=== PATIENT | female | born 1995 | race Caucasian/White ===

== ENCOUNTER → 2019-07-05 09:46 | Outpatient (BNVA) | payer MEDICAID, SELFPAY | PROVIDERS: Family Provider Nurse Practitioner Family; PCP Nurse Practitioner Family; Visit Provider Nurse Practitioner | DX: F31.0 Bipolar disorder, current episode hypomanic (principal); F60.3 Borderline personality disorder | CPT/HCPCS: 99213 ==

== ENCOUNTER → 2019-09-11 10:17 | Outpatient (BNVA) | payer MEDICAID, SELFPAY | PROVIDERS: Family Provider Nurse Practitioner Family; PCP Nurse Practitioner Family; Visit Provider Nurse Practitioner | DX: E11.9 Type 2 diabetes mellitus without complications (principal); F31.0 Bipolar disorder, current episode hypomanic | CPT/HCPCS: 80053; 81000; 81003; 85025 ==

== ENCOUNTER → 2019-09-18 08:38 | Outpatient (BNVA) | payer MEDICAID, SELFPAY | PROVIDERS: Family Provider Nurse Practitioner Family; PCP Nurse Practitioner Family; Visit Provider Nurse Practitioner | DX: F60.3 Borderline personality disorder (principal); F31.0 Bipolar disorder, current episode hypomanic; F41.1 Generalized anxiety disorder | CPT/HCPCS: 99213 ==

== ENCOUNTER 2019-10-01 17:41 | Emergency (ER) | payer MEDICAID, SELFPAY ==
[2019-10-01 17:43] VITALS: BP 142/98; PULSE 79; RESP 17; TEMP 36.5; O2SAT 99; BMI 30.7
[2019-10-01 17:52] VITALS: RESP 16
--- NOTE | 2019-10-01 18:06 | ED_ITS ---
Documented by User: Salma Vang MD 10/07/19 19:08 HPI - Psych General: Chief Complaint: Psychiatric Symptoms Stated Complaint: violent outburst Time Seen by Provider: 10/01/19 17:45 History of Present Illness: HPI Narrative: Patient is a 23-year-old female presenting after making verbal threats to her guardian and housemates. She is a little fuzzy on the details of these exchanges. She denies any physical injury to herself or others. She says that she was thinking about hurting herself earlier but denies it now. She states that she does not want to be put in a straight jacket. She says that she did not mean any of the things that she said earlier and did not intend to harm anyone. She tells me that she has a guardian named Maira and that Maira told her she could not live in her care home anymore. She told her that she needs to be admitted. The patient is concerned that the TELEVISION ENGINEERING TEACHER you will not admit her here because she has been here so many times. complaint: suicidal ideation Onset (ago): unknown Duration: intermittent History of same: Yes Associated symptoms: Reports homicidal ideation and suicidal ideation Review of Systems General: Reports: 10 or more systems reviewed and unremarkable except in HPI and below Const: Denies: fever(s) or chills Card: Denies: chest pain Resp: Denies: dyspnea or productive cough Psych: Reports: anxiety, mood swings, irritability, suicidal ideation and homicidal ideation PFS ED PFSH: Medical History Acute pancreatitis with infected necrosis ADHD Autistic disorder Bipolar disorder, current episode hypomanic Borderline personality disorder Constipation, slow transit Depo-Provera contraceptive status Intellectual delay OCD (obsessive compulsive disorder) Oppositional defiant disorder Schizophrenia, unspecified Uses feeding tube Surgical History History of gastrostomy tube placement Family History Denies family history of Bleeding disorder Social History Smoking and tobacco status: never smoked Second hand smoke exposure: No Smoking risk assessment/counseling performed?: No Alcohol intake: never Desire information about alcohol rehabilitation?: No Counseling given: No Desire information about substance/drug rehabilitation?: No Counseling given: No Adopted: No Caregiver/support person: Yes Lives independently: No Household members: caregiver and other Housing: Apartment Marital status: Single Number of children: 0 Number of grandchildren: 0 Highest education level completed: High School Graduate service: No Current occupational status: employed Current occupational exposures/hazards: No Pets and animals: Yes History of recent travel: No Sexually active: No Current gender identity: Female Special blaine needs: No Physical Exam Const: COMMON NORMALS: no acute distress, patient oriented x3 and alert GENERAL APPEARANCE: cooperative and well developed; not in distress and not diaphoretic ORIENTATION/CONSCIOUSNESS: Yes awake, Yes oriented to person, Yes oriented to place and Yes oriented to time HENMT: COMMON NORMALS: normocephalic, atraumatic, external ears normal, Normal external nose present and moist oral mucous membranes HEAD & SCALP: normocephalic and atraumatic FACE & SINUS: normal facial exam; no Facial tenderness on exam of face and sinuses NOSE: Normal external nose present EXTERNAL EAR: Yes external ears normal Eye: COMMON NORMALS: Equal, round and reactive pupils present and EOMs intact bilaterally PUPIL: Yes Equal, round and reactive pupils present Neck/C-Spine: COMMON NORMALS: full ROM, supple and no JVD GENERAL: Yes normal visual inspection and Yes trachea midline CERVICAL SPINE: No Cervical spine tenderness Lymph: LYMPHATIC: no lymphadenopathy noted Chest: COMMONS NORMALS: normal inspection of the chest Resp: COMMON NORMALS: normal respiratory effort, No use of accessory muscles and clear to auscultation bilaterally EFFORT & INSPECTION: Yes able to speak in complete sentences and Yes symmetric chest movement AUSCULTATION: clear to auscultation bilaterally Cardio: COMMON NORMALS: no JVD, regular rate, regular rhythm, No gallops present (Cardio), No murmurs present (Cardio) and Peripheral pulses 2+ throughout RATE: regular rate RHYTHM: regular rhythm PERIPHERAL PULSES: Peripheral pulses 2+ throughout GI: COMMON NORMALS: Normal to inspection, nondistended, normoactive bowel sounds present, Soft to palpation and non-tender PALPATION: Yes Soft to palpation Back/Pelvis: COMMON NORMALS: thoracic and lumbar spine normal to inspection and thoraco-lumbar ROM normal Extremity: COMMON NORMALS: normal to inspection, full ROM and capillary refill normal Neuro: COMMON NORMALS: patient oriented x3, CN's II-XII intact bilaterally, moves all extremities, no focal motor deficits and no sensory deficits noted SENSORIUM/ORIENTATION: Yes alert, Yes oriented to person, Yes oriented to place and Yes oriented to time Psych: COMMON NORMALS: mental status grossly normal, Normal thought process present, cooperative, normal affect, speech normal and activity/motor behavior normal SPEECH: Yes normal speech THOUGHT PROCESS: Normal thought process present Skin: COMMON NORMALS: no rashes or lesions noted and turgor normal GENERAL SKIN EXAM: no rashes or lesions noted and turgor normal MDM - Psych Lab Data: Labs: Lab Results 10/01/19 10/01/19 10/01/19 Range/Units 15:47 15:47 15:47 WBC (4.0-10.0) 10^3/ uL RBC (4.1-5.3) 10^6/u L Hgb (11.5-15.3) g/dL Hct (37.0-47.0) % MCV (81-99) fL MCH (28.0-34.0) pg MCHC (30.0-36.0) g/dL RDW (12.1-15.1) % Plt Count (130-400) 10^3/c mm MPV (7.4-10.4) fL Neut % (Auto) % Lymph % (Auto) % [place] % (Auto) % Eos % (Auto) % Baso % (Auto) % Neut # (Auto) (1.8-7.7) 10^3/u L Lymph # (Auto) (0.8-4.8) 10^3/u L [place] # (Auto) (0.2-0.9) 10^3/u L Eos # (Auto) (0.0-0.8) 10^3/u L Baso # (Auto) (0.0-0.1) 10^3/u L Nucleated RBC % (a uto) % Nucleated RBCs # /100WBC Sodium (136-145) mmol/L Potassium (3.5-5.1) mmol/L Chloride (98-107) mmol/L Carbon Dioxide (22-29) mmol/L Anion Gap (5-19) BUN (6-20) mg/dL Creatinine (0.5-0.9) mg/dL GFR Calculation (90-130) mL/min Glucose (65-115) mg/dL Calculated Osmolal ity (285-295) mOsm/k g Calcium (8.5-10.5) mg/dL Total Bilirubin (0.15-1.2) mg/dL AST (0-32) U/L ALT (0-33) U/L Alkaline Phosphata se (35-105) IU/L Total Protein (6.6-8.7) g/dL Albumin (3.5-5.2) g/dL Globulin (1.3-4.6) g/dL TSH (0.27-4.20) uIU/ mL HCG, Qual Negative (Negative) Urine Color Straw (Yellow) Urine Appearance Clear (CLEAR) Urine pH 6.5 (5-7) Ur Specific Gravit y 1.015 (1.005-1.030) Urine Protein 1+ H (Negative) Urine Glucose (UA) Norm (Normal) Urine Ketones Negative (Negative) Urine Blood Neg (Negative) Urine Nitrate Negative (Negative) Urine Bilirubin Neg (NEGATIVE) Urine Urobilinogen Norm (Negative) mg/dL Ur Leukocyte Dionna ase Negative (Negative) Urine RBC None (0-2) /hpf Urine WBC 0-4 H (0-5) /hpf Ur Squamous Epith Cells 0-4 H (0-5) Urine Bacteria Trace (NONE) Salicylates (3-10) mg/dL Urine Opiates Scre en Negative (Negative) ng/mL Acetaminophen (10-30) ug/mL Ur Barbiturates Sc reen Negative (Negative) ng/mL Ur Phencyclidine S crn Negative (Negative) ng/mL Ur Amphetamines Sc reen Negative (Negative) ng/mL U Benzodiazepines Scrn Negative (Negative) ng/mL Urine Cocaine Scre en Negative (Negative) ng/mL U Marijuana (THC) Screen Negative (Negative) ng/mL Ethyl Alcohol (0-10) mg/dL 10/01/19 10/01/19 Range/Units 18:03 18:03 WBC 9.8 (4.0-10.0) 10^3/ uL RBC 5.48 H (4.1-5.3) 10^6/u L Hgb 14.5 (11.5-15.3) g/dL Hct 46.2 (37.0-47.0) % MCV 84.3 (81-99) fL MCH 26.5 L (28.0-34.0) pg MCHC 31.4 (30.0-36.0) g/dL RDW 13.9 (12.1-15.1) % Plt Count 267 (130-400) 10^3/c mm MPV 10.5 H (7.4-10.4) fL Neut % (Auto) 61.6 % Lymph % (Auto) 30.5 % [place] % (Auto) 5.5 % Eos % (Auto) 2.0 % Baso % (Auto) 0.1 % Neut # (Auto) 6.1 (1.8-7.7) 10^3/u L Lymph # (Auto) 3.0 (0.8-4.8) 10^3/u L [place] # (Auto) 0.5 (0.2-0.9) 10^3/u L Eos # (Auto) 0.2 (0.0-0.8) 10^3/u L Baso # (Auto) 0.0 (0.0-0.1) 10^3/u L Nucleated RBC % (a uto) 0 % Nucleated RBCs # 0.0 /100WBC Sodium 141 (136-145) mmol/L Potassium 3.8 (3.5-5.1) mmol/L Chloride 103 (98-107) mmol/L Carbon Dioxide 24 (22-29) mmol/L Anion Gap 17.8 (5-19) BUN 13 (6-20) mg/dL Creatinine 0.7 (0.5-0.9) mg/dL GFR Calculation 102.8 (90-130) mL/min Glucose 127 H (65-115) mg/dL Calculated Osmolal ity 290 (285-295) mOsm/k g Calcium 9.6 (8.5-10.5) mg/dL Total Bilirubin 0.2 (0.15-1.2) mg/dL AST 16 (0-32) U/L ALT 13 (0-33) U/L Alkaline Phosphata se 86 (35-105) IU/L Total Protein 7.6 (6.6-8.7) g/dL Albumin 4.8 (3.5-5.2) g/dL Globulin 2.8 (1.3-4.6) g/dL TSH 1.21 (0.27-4.20) uIU/ mL HCG, Qual (Negative) Urine Color (Yellow) Urine Appearance (CLEAR) Urine pH (5-7) Ur Specific Gravit y (1.005-1.030) Urine Protein (Negative) Urine Glucose (UA) (Normal) Urine Ketones (Negative) Urine Blood (Negative) Urine Nitrate (Negative) Urine Bilirubin (NEGATIVE) Urine Urobilinogen (Negative) mg/dL Ur Leukocyte Dionna ase (Negative) Urine RBC (0-2) /hpf Urine WBC (0-5) /hpf Ur Squamous Epith Cells (0-5) Urine Bacteria (NONE) Salicylates < 0.3 L (3-10) mg/dL Urine Opiates Scre en (Negative) ng/mL Acetaminophen < 5.0 L (10-30) ug/mL Ur Barbiturates Sc reen (Negative) ng/mL Ur Phencyclidine S crn (Negative) ng/mL Ur Amphetamines Sc reen (Negative) ng/mL U Benzodiazepines Scrn (Negative) ng/mL Urine Cocaine Scre en (Negative) ng/mL U Marijuana (THC) Screen (Negative) ng/mL Ethyl Alcohol < 10 (0-10) mg/dL Discharge Plan Discharge Patient Disposition: Home, Self-Care Clinical Impression: Behavioral disorder, Intellectual delay, Bipolar disorder, current episode hypomanic, Borderline personality disorder Condition: Stable Prescriptions: No Action calcium carbonate-vitamin D3 [Caltrate with Vitamin D3] 600 mg(1,500mg) -800 unit tablet 1 tab PO DAILY RF: 0 docusate sodium [Colace] 100 mg capsule 100 mg PO BID RF: 0 medroxyprogesterone [Depo-Provera] 150 mg/mL suspension IM RF: 0 fluticasone propionate 50 mcg/actuation spray,suspension 1 spray INTRANASAL BID RF: 0 ibuprofen 600 mg tablet 600 mg PO BID PRNRF: 0 acetaminophen [Mapap (acetaminophen)] 325 mg tablet 325 mg PO QID PRNRF: 0 cetirizine [Zyrtec] 10 mg tablet 10 mg PO DAILY RF: 0 (DME) blood-glucose meter Kit See Rx Instructions .ROUTE .MEDSUPPLY Qty: 1 RF: 0 multivitamin with iron PO DAILY RF: 0 Osmolite 1.5 Sudeep 0.06 gram-1.5 kcal/mL liquid PO RF: 0 ziprasidone HCl 60 mg capsule 60 mg PO BID Qty: 60 RF: 0 lamotrigine 100 mg tablet 100 mg PO BID Qty: 60 RF: 0 polyethylene glycol 3350 [Miralax] 17 gram/dose powder 17 gm PO DAILY Qty: 510 RF: 5 Coppertone Sport Lotion as directed RF: 0 triamcinolone acetonide 0.1 % cream 1 applic TOPICAL .evening only PRN (Reason: itching) Qty: 30 RF: 0 Referrals: Vandana Goodman FNP-C [Primary Care Provider] - Activity Restrictions/Additional Instructions: Continue same medications no changes follow-up with outpatient psychiatry as soon as able to review long-term care plans Discharge Date/Time: 10/02/19 11:24 Sign Out Sign Out Data: Patient Sign Out occurred on 10/02/19 at 07:24. Patient's care was discussed, and care was transferred from to Aramis Funes DO. Coding Level of Care Code ED Softlines Supervisor for Chg Fwd Exam Comprehensive Documented by User: Aramis Funes DO 10/02/19 15:40 HPI - Psych General: Chief Complaint: Psychiatric Symptoms Stated Complaint: violent outburst Time Seen by Provider: 10/01/19 17:45 PFSH ED PFSH: Medical History Acute pancreatitis with infected necrosis ADHD Autistic disorder Bipolar disorder, current episode hypomanic Borderline personality disorder Constipation, slow transit Depo-Provera contraceptive status Intellectual delay OCD (obsessive compulsive disorder) Oppositional defiant disorder Schizophrenia, unspecified Uses feeding tube Surgical History History of gastrostomy tube placement Family History Denies family history of Bleeding disorder Social History Smoking and tobacco status: never smoked Second hand smoke exposure: No Smoking risk assessment/counseling performed?: No Alcohol intake: never Desire information about alcohol rehabilitation?: No Counseling given: No Desire information about substance/drug rehabilitation?: No Counseling given: No Adopted: No Caregiver/support person: Yes Lives independently: No Household members: caregiver and other Housing: Apartment Marital status: Single Number of children: 0 Number of grandchildren: 0 Highest education level completed: High School Graduate service: No Current occupational status: employed Current occupational exposures/hazards: No Pets and animals: Yes History of recent travel: No Sexually active: No Current gender identity: Female Special blaine needs: No MDM - Psych MDM Narrative: Medical decision making narrative: Care assumed a change of shift from Dr. Gómez. We cannot get placement for this patient since most of her issues are behavioral. Dr. Kolb is on-call I asked him to see the patient he seen and evaluated the patient he does not recommend hospitalization recommends discharge he feels this is purely behavioral that she will not benefit from a psychiatry admission. They likely will need to make arrangements for different living arrangements for her at a higher level of care. Please see Dr. Kolb's notes. Lab Data: Labs: Lab Results 10/01/19 10/01/19 10/01/19 Range/Units 15:47 15:47 15:47 WBC (4.0-10.0) 10^3/ uL RBC (4.1-5.3) 10^6/u L Hgb (11.5-15.3) g/dL Hct (37.0-47.0) % MCV (81-99) fL MCH (28.0-34.0) pg MCHC (30.0-36.0) g/dL RDW (12.1-15.1) % Plt Count (130-400) 10^3/c mm MPV (7.4-10.4) fL Neut % (Auto) % Lymph % (Auto) % [place] % (Auto) % Eos % (Auto) % Baso % (Auto) % Neut # (Auto) (1.8-7.7) 10^3/u L Lymph # (Auto) (0.8-4.8) 10^3/u L [place] # (Auto) (0.2-0.9) 10^3/u L Eos # (Auto) (0.0-0.8) 10^3/u L Baso # (Auto) (0.0-0.1) 10^3/u L Nucleated RBC % (a uto) % Nucleated RBCs # /100WBC Sodium (136-145) mmol/L Potassium (3.5-5.1) mmol/L Chloride (98-107) mmol/L Carbon Dioxide (22-29) mmol/L Anion Gap (5-19) BUN (6-20) mg/dL Creatinine (0.5-0.9) mg/dL GFR Calculation (90-130) mL/min Glucose (65-115) mg/dL Calculated Osmolal ity (285-295) mOsm/k g Calcium (8.5-10.5) mg/dL Total Bilirubin (0.15-1.2) mg/dL AST (0-32) U/L ALT (0-33) U/L Alkaline Phosphata se (35-105) IU/L Total Protein (6.6-8.7) g/dL Albumin (3.5-5.2) g/dL Globulin (1.3-4.6) g/dL TSH (0.27-4.20) uIU/ mL HCG, Qual Negative (Negative) Urine Color Straw (Yellow) Urine Appearance Clear (CLEAR) Urine pH 6.5 (5-7) Ur Specific Gravit y 1.015 (1.005-1.030) Urine Protein 1+ H (Negative) Urine Glucose (UA) Norm (Normal) Urine Ketones Negative (Negative) Urine Blood Neg (Negative) Urine Nitrate Negative (Negative) Urine Bilirubin Neg (NEGATIVE) Urine Urobilinogen Norm (Negative) mg/dL Ur Leukocyte Dionna ase Negative (Negative) Urine RBC None (0-2) /hpf Urine WBC 0-4 H (0-5) /hpf Ur Squamous Epith Cells 0-4 H (0-5) Urine Bacteria Trace (NONE) Salicylates (3-10) mg/dL Urine Opiates Scre en Negative (Negative) ng/mL Acetaminophen (10-30) ug/mL Ur Barbiturates Sc reen Negative (Negative) ng/mL Ur Phencyclidine S crn Negative (Negative) ng/mL Ur Amphetamines Sc reen Negative (Negative) ng/mL U Benzodiazepines Scrn Negative (Negative) ng/mL Urine Cocaine Scre en Negative (Negative) ng/mL U Marijuana (THC) Screen Negative (Negative) ng/mL Ethyl Alcohol (0-10) mg/dL 10/01/19 10/01/19 Range/Units 18:03 18:03 WBC 9.8 (4.0-10.0) 10^3/ uL RBC 5.48 H (4.1-5.3) 10^6/u L Hgb 14.5 (11.5-15.3) g/dL Hct 46.2 (37.0-47.0) % MCV 84.3 (81-99) fL MCH 26.5 L (28.0-34.0) pg MCHC 31.4 (30.0-36.0) g/dL RDW 13.9 (12.1-15.1) % Plt Count 267 (130-400) 10^3/c mm MPV 10.5 H (7.4-10.4) fL Neut % (Auto) 61.6 % Lymph % (Auto) 30.5 % [place] % (Auto) 5.5 % Eos % (Auto) 2.0 % Baso % (Auto) 0.1 % Neut # (Auto) 6.1 (1.8-7.7) 10^3/u L Lymph # (Auto) 3.0 (0.8-4.8) 10^3/u L [place] # (Auto) 0.5 (0.2-0.9) 10^3/u L Eos # (Auto) 0.2 (0.0-0.8) 10^3/u L Baso # (Auto) 0.0 (0.0-0.1) 10^3/u L Nucleated RBC % (a uto) 0 % Nucleated RBCs # 0.0 /100WBC Sodium 141 (136-145) mmol/L Potassium 3.8 (3.5-5.1) mmol/L Chloride 103 (98-107) mmol/L Carbon Dioxide 24 (22-29) mmol/L Anion Gap 17.8 (5-19) BUN 13 (6-20) mg/dL Creatinine 0.7 (0.5-0.9) mg/dL GFR Calculation 102.8 (90-130) mL/min Glucose 127 H (65-115) mg/dL Calculated Osmolal ity 290 (285-295) mOsm/k g Calcium 9.6 (8.5-10.5) mg/dL Total Bilirubin 0.2 (0.15-1.2) mg/dL AST 16 (0-32) U/L ALT 13 (0-33) U/L Alkaline Phosphata se 86 (35-105) IU/L Total Protein 7.6 (6.6-8.7) g/dL Albumin 4.8 (3.5-5.2) g/dL Globulin 2.8 (1.3-4.6) g/dL TSH 1.21 (0.27-4.20) uIU/ mL HCG, Qual (Negative) Urine Color (Yellow) Urine Appearance (CLEAR) Urine pH (5-7) Ur Specific Gravit y (1.005-1.030) Urine Protein (Negative) Urine Glucose (UA) (Normal) Urine Ketones (Negative) Urine Blood (Negative) Urine Nitrate (Negative) Urine Bilirubin (NEGATIVE) Urine Urobilinogen (Negative) mg/dL Ur Leukocyte Dionna ase (Negative) Urine RBC (0-2) /hpf Urine WBC (0-5) /hpf Ur Squamous Epith Cells (0-5) Urine Bacteria (NONE) Salicylates < 0.3 L (3-10) mg/dL Urine Opiates Scre en (Negative) ng/mL Acetaminophen < 5.0 L (10-30) ug/mL Ur Barbiturates Sc reen (Negative) ng/mL Ur Phencyclidine S crn (Negative) ng/mL Ur Amphetamines Sc reen (Negative) ng/mL U Benzodiazepines Scrn (Negative) ng/mL Urine Cocaine Scre en (Negative) ng/mL U Marijuana (THC) Screen (Negative) ng/mL Ethyl Alcohol < 10 (0-10) mg/dL Discharge Plan Discharge Patient Disposition: Home, Self-Care Clinical Impression: Behavioral disorder, Intellectual delay, Bipolar disorder, current episode hypomanic, Borderline personality disorder Condition: Stable Prescriptions: No Action calcium carbonate-vitamin D3 [Caltrate with Vitamin D3] 600 mg(1,500mg) -800 unit tablet 1 tab PO DAILY RF: 0 docusate sodium [Colace] 100 mg capsule 100 mg PO BID RF: 0 medroxyprogesterone [Depo-Provera] 150 mg/mL suspension IM RF: 0 fluticasone propionate 50 mcg/actuation spray,suspension 1 spray INTRANASAL BID RF: 0 ibuprofen 600 mg tablet 600 mg PO BID PRNRF: 0 acetaminophen [Mapap (acetaminophen)] 325 mg tablet 325 mg PO QID PRNRF: 0 cetirizine [Zyrtec] 10 mg tablet 10 mg PO DAILY RF: 0 (DME) blood-glucose meter Kit See Rx Instructions .ROUTE .MEDSUPPLY Qty: 1 RF: 0 multivitamin with iron PO DAILY RF: 0 Osmolite 1.5 Sudeep 0.06 gram-1.5 kcal/mL liquid PO RF: 0 ziprasidone HCl 60 mg capsule 60 mg PO BID Qty: 60 RF: 0 lamotrigine 100 mg tablet 100 mg PO BID Qty: 60 RF: 0 polyethylene glycol 3350 [Miralax] 17 gram/dose powder 17 gm PO DAILY Qty: 510 RF: 5 Coppertone Sport Lotion as directed RF: 0 triamcinolone acetonide 0.1 % cream 1 applic TOPICAL .evening only PRN (Reason: itching) Qty: 30 RF: 0 Referrals: Vandana Goodman FNP-C [Primary Care Provider] - Activity Restrictions/Additional Instructions: Continue same medications no changes follow-up with outpatient psychiatry as soon as able to review long-term care plans Discharge Date/Time: 10/02/19 11:24 Sign Out Sign Out Data: Patient Sign Out occurred on 10/02/19 at 07:24. Patient's care was discussed, and care was transferred from to Aramis Funes DO. Coding Level of Care Code ED Softlines Supervisor for Gelyg Fwd Exam Comprehensive
[2019-10-01 18:16] LABS: Basophils % 0.1 %; Eosinophils # 0.2 10^3/uL (0.0-0.8); Hematocrit 46.2 % (37.0-47.0); Hemoglobin 14.5 g/dL (11.5-15.3); Lymphocytes % 30.5 %; Mean Corpuscular HGB Conc 31.4 g/dL (30.0-36.0); Mean Corpuscular Hemoglobin 26.5 pg (28.0-34.0); Mean Corpuscular Volume 84.3 fL (81-99); Mean Platelet Volume 10.5 fL (7.4-10.4); Monocytes # 0.5 10^3/uL (0.2-0.9); Monocytes % 5.5 %; Neutrophils # 6.1 10^3/uL (1.8-7.7); Neutrophils % 61.6 %; Nucleated Red Blood Cells % 0 %; Platelet Count 267 10^3/cmm (130-400); Red Blood Count 5.48 10^6/uL (4.1-5.3); Red Cell Distribution Width 13.9 % (12.1-15.1); White Blood Count 9.8 10^3/uL (4.0-10.0)
[2019-10-01 18:20] LABS: Add Urine Microscopic? YES; Bilirubin Urine Neg (NEGATIVE); Blood Urine Neg (Negative); Glucose Urine UA Norm (Normal); HCG Qualitative Urine. Negative (Negative); Ketones Urine Negative (Negative); Leukocyte Esterase Urine Negative (Negative); Nitrate Urine Negative (Negative); Protein Urine 1+ (Negative); Specific Gravity, Urine 1.015 (1.005-1.030); Urine Appearance Clear (CLEAR); Urine Color Straw (Yellow); Urobilinogen Urine Norm (Negative); pH Urine 6.5 (5-7)
[2019-10-01 18:27] LABS: Add Urine Culture? No; Bacteria Urine TRACE; Squamous Epithelial Cell Urine 0-4 (0-5); WBC Urine 0-4 /hpf (0-5)
[2019-10-01 18:41] LABS: Alanine Aminotransferase 13 U/L (0-33); Albumin Level 4.8 g/dL (3.5-5.2); Alkaline Phosphatase 86 IU/L (35-105); Anion Gap 17.8 (5-19); Aspartate Amino Transferase 16 U/L (0-32); Blood Urea Nitrogen 13 mg/dL (6-20); Calcium 9.6 mg/dL (8.5-10.5); Carbon Dioxide 24 mmol/L (22-29); Chloride 103 mmol/L (98-107); Globulin 2.8 g/dL (1.3-4.6); Glomerular Filtration Rate 102.8 mL/min (90-130); Glucose 127 mg/dL (65-115); Osmolality Calculated 290 mOsm/kg (285-295); Potassium 3.8 mmol/L (3.5-5.1); Sodium 141 mmol/L (136-145); Thyroid Stimulating Hormone 1.21 uIU/mL (0.27-4.20); Total Bilirubin 0.2 mg/dL (0.15-1.2); Total Protein 7.6 g/dL (6.6-8.7)
[2019-10-01 19:02] LABS: Acetaminophen < 5.0 ug/mL (10-30); Alcohol Level < 10 mg/dL (0-10); Salicylate < 0.3 mg/dL (3-10)
[2019-10-01 21:35] LABS: Amphetamines Screen Urine Negative (Negative); Barbiturates Screen Urine Negative (Negative); Benzodiazepines Screen Urine Negative (Negative); Cocaine Screen Urine Negative (Negative); Opiate Screen Urine Negative (Negative); PCP Screen Urine Negative (Negative); THC Screen Urine Negative (Negative)
--- NOTE | 2019-10-01 22:20 | PC.NURSE ---
Call Placed to [facility].
--- NOTE | 2019-10-01 23:47 | PC.NURSE ---
Call placed to [facility], all labs are complete.
[2019-10-02] MEDS: lamoTRIgine 100 mg Tablet PO (01:20)
--- NOTE | 2019-10-02 03:03 | PC.NURSE ---
Call placed to [facility],chart faxed per request. Also spoke with patient juanita who is opposed to patient being admitted here.
--- NOTE | 2019-10-02 03:54 | PC.NURSE ---
[facility] called back and doesn't htink patient would be a good fit there, Called [facility] and information faxed.
--- NOTE | 2019-10-02 06:05 | PC.NURSE ---
pt's guardian contacted to notify of staff's inability to find placement. ED physician notified and has plans for psychiatry to assess pt in ER
--- NOTE | 2019-10-02 07:37 | PC.NURSE ---
pt resting at this time. sitter remains at bedside. no needs at this time
--- NOTE | 2019-10-02 08:07 | PC.NURSE ---
Dr. Kolb in room to evaluate patient
[2019-10-02] MEDS: ziprasidone hcl 60 mg Capsule PO (08:17)
[2019-10-02 08:20] VITALS: BP 134/90; PULSE 84; RESP 16; TEMP 36.6; O2SAT 97
--- NOTE | 2019-10-02 08:21 | PM.PSYCN ---
Providers/Reason for Consult Consulting Physican/Specialty*: Cortes Kolb M.D./psychiatry Reason for Consult*: Alleged acting out Requesting Physcian: Aramis Funes DO Primary Care Provider: LESLY Tenorio Psych Consult HPI History of Present Illness Mary Beth Pratt is a 23 year old female who presents having made verbal threats to her guardian and housemates. She now denies any physical injury to herself or others. She says that she was thinking about hurting herself earlier but denies it now. She says that she did not mean any of the things that she said earlier and did not intend to harm anyone. This is wholly commensurate with the current ED chart and the EMR, all of which I have reviewed. She tells me that she has a guardian named Maira, who wants the patient to be admitted. The patient is concerned that the [facility] will not admit her here because she has been here so many times. While that is indeed NOT a reason to decline admission, there is certainly evidence that there is no treatable disorder at hand which would be amenable to treatment on our inpatient psychiatry unit. Review of Systems Narrative: General: Reports: 10 or more systems reviewed and unremarkable except in HPI and below Const: Denies: fever(s) or chills Card: Denies: chest pain Resp: Denies: dyspnea or productive cough Psych: Reports: anxiety, mood swings, irritability, episodic suicidal ideation and homicidal ideation, neither of which are present now. Meds Current Medications: Current Medications Generic Name Dose Route Start Last Admin Trade Name Freq PRN Reason Stop Dose Admin Ziprasidone 60 mg 10/02/19 07:00 10/02/19 08:17 Geodon PO 60 mg AC&BEDTIME SHANIQUE Administration PFSH NPU PFSH: Medical History Acute pancreatitis with infected necrosis ADHD Autistic disorder Bipolar disorder, current episode hypomanic Borderline personality disorder Constipation, slow transit Depo-Provera contraceptive status Intellectual delay OCD (obsessive compulsive disorder) Oppositional defiant disorder Schizophrenia, unspecified Uses feeding tube Surgical History History of gastrostomy tube placement Family History Denies family history of Bleeding disorder Social History Smoking and tobacco status: never smoked Second hand smoke exposure: No Smoking risk assessment/counseling performed?: No Alcohol intake: never Desire information about alcohol rehabilitation?: No Counseling given: No Desire information about substance/drug rehabilitation?: No Counseling given: No Adopted: No Caregiver/support person: Yes Lives independently: No Household members: caregiver and other Housing: Apartment Marital status: Single Number of children: 0 Number of grandchildren: 0 Highest education level completed: High School Graduate service: No Current occupational status: employed Current occupational exposures/hazards: No Pets and animals: Yes History of recent travel: No Sexually active: No Current gender identity: Female Special blaine needs: No Mental Status Exam MSE Comments: The patient is alert and oriented to person, place, time, and situation. Hygiene is good and the patient is well-kempt. Sensorium is clear and she understands what we tell her and what's going on around her. The patient maintains appropriate eye contact, is cooperative and relates well to me. Behavior shows no psychomotor agitation. At no time was she uncontrolled or irritable. Mood is calm but anxious about where her guardian intends to put her. Affect is appropriate to her current mood. Thought processes are linear and goal-directed, free of racing, blocking or looseness of association. Speech is of normal rate and volume, without dysarthria, aprosody or pressure. She speaks calmly in a reasonable fashion. She frankly acknowledges that she does have times when she is explosive but she is certainly not so now. There is no inordinate latency of response. The patient denies auditory or visual hallucinations or delusions. The patient denies suicidal or homicidal ideation, plan or intent. She exhibits no assaultive behavior this morning. Memory is intact for recent and remote events. Fund of knowledge is moderately limited. Insight and judgment were deemed to be good given the recognition of her situation and potential disposition. Vitals/I&O/Wt Last Vital Signs Temp 97.8 F 10/02/19 08:20 Pulse 84 10/02/19 08:20 Resp 16 10/02/19 08:20 BP 134/90 10/02/19 08:20 Pulse Ox 97 10/02/19 08:20 Weight last 48 hrs Weight 196 lb Physical Exam Narrative: EXAM NARRATIVE: Const: COMMON NORMALS: no acute distress, patient oriented x3 and alert GENERAL APPEARANCE: cooperative and well developed; not in distress and not diaphoretic; patient is perfectly calm. ORIENTATION/CONSCIOUSNESS: awake, oriented to person, place and time. HENMT: COMMON NORMALS: normocephalic, atraumatic, external ears normal, Normal external nose present and moist oral mucous membranes HEAD & SCALP: normocephalic and atraumatic FACE & SINUS: normal facial exam; no Facial tenderness on exam of face and sinuses NOSE: Normal external nose present EXTERNAL EAR: Yes external ears normal Eye: COMMON NORMALS: Equal, round and reactive pupils present and EOMs intact bilaterally PUPIL: Yes Equal, round and reactive pupils present Neck/C-Spine: COMMON NORMALS: full ROM, supple and no JVD GENERAL: Yes normal visual inspection and Yes trachea midline CERVICAL SPINE: No Cervical spine tenderness Lymph: LYMPHATIC: no lymphadenopathy noted Chest: COMMONS NORMALS: normal inspection of the chest Resp: COMMON NORMALS: normal respiratory effort, No use of accessory muscles and clear to auscultation bilaterally EFFORT & INSPECTION: Yes able to speak in complete sentences and Yes symmetric chest movement AUSCULTATION: clear to auscultation bilaterally Cardio: COMMON NORMALS: no JVD, regular rate, regular rhythm, No gallops present (Cardio), No murmurs present (Cardio) and Peripheral pulses 2+ throughout RATE: regular rate RHYTHM: regular rhythm PERIPHERAL PULSES: Peripheral pulses 2+ throughout GI: COMMON NORMALS: Normal to inspection, nondistended, normoactive bowel sounds present, Soft to palpation and non-tender PALPATION: Yes Soft to palpation Back/Pelvis: COMMON NORMALS: thoracic and lumbar spine normal to inspection and thoraco-lumbar ROM normal Extremity: COMMON NORMALS: normal to inspection, full ROM and capillary refill normal Neuro: COMMON NORMALS: patient oriented x3, CN's II-XII intact bilaterally, moves all extremities, no focal motor deficits and no sensory deficits noted SENSORIUM/ORIENTATION: Yes alert, Yes oriented to person, Yes oriented to place and Yes oriented to time Psych: COMMON NORMALS: mental status grossly normal, Normal thought process present, cooperative, normal affect, speech normal and activity/motor behavior normal SPEECH: Yes normal speech THOUGHT PROCESS: Linear, goal-directed and free of any racing, blocking or looseness of association. No psychotic symptoms in evidence. Skin: COMMON NORMALS: no rashes or lesions noted and turgor normal GENERAL SKIN EXAM: no rashes or lesions noted and turgor normal A&P Assessment and plan (1) Behavioral disorder: At the present time the patient's behavioral symptoms are not evident and do not require redirection or management. Admission to this hospital is not appropriate. Status: Acute (2) Borderline personality disorder: The patient's outbursts are commensurate with this personality disorder. It is not amenable to inpatient treatment available here. Other disposition should be sought. Status: Acute (3) Bipolar disorder, current episode hypomanic: At the present time she is not symptomatic of mood derangement and this disorder can continue to be managed on an outpatient basis. Status: Acute (4) Intellectual delay: The patient is sufficiently competent to manage her daily care on an outpatient basis. Status: Chronic Involuntary Hold Information 96 Hour Hold: 96 Hour Involuntary Admission: No 21 Day Hold: 21 Day Involuntary Hold: No Attestations NPU Medical Necessity Statement*: There is no need to admit this patient just now. She has nothing which would yield to inpatient psychiatric treatment. Time Spent in Patient Care: Greater than 35 minutes (>than 50% of time spent in counselling and/or direct pt care on unit). I spent 50 minutes on this case Coding Level of Care Code Acute Geometry Tutor for Artemio Fwd Diagnoses Behavioral disorder Borderline personality disorder F60.3 Bipolar disorder, current episode hypomanic F31.0 Intellectual delay F81.9
--- NOTE | 2019-10-02 08:21 | PC.NURSE ---
pt given breakfast. pt has no needs at this time
--- NOTE | 2019-10-02 10:23 | PC.NURSE ---
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
--- NOTE | 2019-10-02 11:40 | PC.NURSE ---
pt guardian in room stating reluctant to take pt home due to her having cyclic behavioral issues . ER physician in room to speak with guardian at this time
== END 2019-10-02 11:24 | disposition home or self-care (01) ==
PROVIDERS: Emergency Medicine; Emergency Provider Family Medicine; Family Provider Nurse Practitioner Family; PCP Nurse Practitioner Family
DX: F31.0 Bipolar disorder, current episode hypomanic (principal); F91.9 Conduct disorder, unspecified; R62.50 Unspecified lack of expected normal physiological development in childhood; F60.3 Borderline personality disorder
CPT/HCPCS: 12345; 36415; 80053; 80306; 80307; 81001; 81025; 84443; 85025; 99284; 99285; A9270

== ENCOUNTER 2020-12-30 09:17 | Emergency (ER) | payer MEDICAID, SELFPAY ==
[2020-12-30 09:26] VITALS: BP 141/93; PULSE 88; RESP 16; TEMP 36.9; O2SAT 96; BMI 37.4
--- NOTE | 2020-12-30 09:49 | ED_ITS ---
HPI - Recheck/Abnormal Lab/Rx General: Chief Complaint: Recheck/Abnormal Lab/Rx Stated Complaint: wanting scripts filled Time Seen by Provider: 12/30/20 09:21 Source: patient and other (caregiver) Mode of arrival: ambulatory Limitations: no limitations History of Present Illness: HPI narrative: Patient is a 25-year-old female who presents to ED today along with her caregiver at [facility] for an encounter for medication refill. Caregiver states they recently picked patient up at a facility in [place]. She unfortunately was only sent 3 days worth of medications. They tried to contact the provider over the facility in [place] who stated they are unwilling to refill prescriptions as they only affiliate with that specific agency. They have tried to contact GLEN Edwards at [facility] who does the majority of patients at [facility] but she is on vacation all week. Caregiver is concerned because many of her medications are psychiatric and diabetic medications and she is concerned about side effects of patient were to stop these cold turkey . Caregiver states patient also does not have any diabetic testing supplies or a glucometer. complaint: medication refill request Returns today for: request for prescription Symptoms since prior visit: no new symptoms Context: ran out of medication Associated symptoms: none Review of Systems Const: Denies: fever(s), chills, body aches, fatigue or malaise Eyes: Denies: change in vision or blurry vision Card: Denies: chest pain, palpitations, irregular heart rhythm, lightheadedness, syncope or dyspnea on exertion Resp: Denies: dyspnea, productive cough or pain on inspiration GI: Denies: abdominal pain, nausea, vomiting, heartburn or diarrhea : Denies: dysuria Musc: Denies: neck pain, back pain or joint pain Skin/Breast: Denies: rash Psych: Denies: hopelessness, paranoia, visual hallucinations, auditory hallucinations, suicidal ideation or homicidal ideation PFS ED PFSH: Medical History (Updated 12/30/20 @ 09:49 by JUSTA Patel) Acute pancreatitis with infected necrosis ADHD Autistic disorder Bipolar disorder, current episode hypomanic Borderline personality disorder Constipation, slow transit Depo-Provera contraceptive status Intellectual delay OCD (obsessive compulsive disorder) Oppositional defiant disorder Schizophrenia, unspecified Uses feeding tube Surgical History History of gastrostomy tube placement Family History (Updated 02/12/20 @ 13:52 by Eryn Chandler) Denies family history of Colon cancer Ovarian cancer Diabetes Heart disease Breast cancer Bleeding disorder Hypertension Uterine cancer Thyroid disease Stroke Social History (Updated 02/12/20 @ 13:55 by Eryn Chandler) Additional social history: - Tobacco use: never Alcohol use: never Drug use: never Physical Exam Const: COMMON NORMALS: no acute distress, patient oriented x3, no limitations and alert GENERAL APPEARANCE: cooperative and well kempt ORIENTATION/CONSCIOUSNESS: Yes awake, Yes oriented to person and Yes oriented to place HENMT: COMMON NORMALS: normocephalic and atraumatic HEAD & SCALP: normocephalic and atraumatic Resp: COMMON NORMALS: normal respiratory effort and clear to auscultation moises aterally AUSCULTATION: clear to auscultation bilaterally Cardio: COMMON NORMALS: regular rate and regular rhythm RATE: regular rate RHYTHM: regular rhythm Neuro: JONATHAN COMA SCALE: document GCS findings Wardell coma scale eye opening: Spontaneous Jonathan coma scale verbal response: Orientated Wardell coma scale motor response: Obey commands Jonathan coma scale total score: 15 COMMON NORMALS: patient oriented x3, CN's II-XII intact bilaterally, moves all extremities, no focal motor deficits, no sensory deficits noted and gait normal SENSORIUM/ORIENTATION: Yes alert, Yes oriented to person and Yes oriented to place Psych: COMMON NORMALS: mental status grossly normal, Normal thought process present, cooperative, normal affect, speech normal, activity/motor behavior normal, denies hallucinations, denies homicidal ideation and denies suicidal ideation APPEARANCE: Yes grossly normal and Yes well kempt ATTITUDE: Yes calm ACTIVITY/MOTOR BEHAVIOR: Yes appropriate eye contact SPEECH: Yes normal speech MOOD & AFFECT: Yes euthymic mood THOUGHT PROCESS: Normal thought process present THOUGHT CONTENT: Yes Normal thought content present ATTENTION/CONCENTRATION: Yes attention grossly intact and Yes concentration grossly intact MEMORY/COGNITION: Yes memory grossly intact and Yes cognition grossly intact Course Vital Signs: Vital signs: Vital Signs Temperature 98.4 F 12/30/20 09:26 Pulse Rate 88 12/30/20 09:26 Respiratory Rate 16 12/30/20 09:26 Blood Pressure 141/93 12/30/20 09:26 Pulse Oximetry 96 12/30/20 09:26 MDM - Recheck/Abnormal Lab/Rx MDM Narrative: Medical decision making narrative: Patient will be given refills of essential medications based on MAR provided. Recommended contacting Dr. Graham as soon as possible so he is aware of situation. Caregiver agrees. Discharge Plan Discharge Patient Disposition: Home Clinical Impression: Encounter for medication refill Condition: Stable Prescriptions: New risperidone 1 mg tablet 1 mg PO TID Qty: 90 RF: 0 metformin 1,000 mg tablet 1,000 mg PO BID Qty: 60 RF: 0 Seroquel 100 mg tablet 100 mg PO BID Qty: 60 RF: 0 Prozac 20 mg capsule 20 mg PO DAILY Qty: 30 RF: 0 Klonopin 1 mg tablet 1 mg PO BID Qty: 20 RF: 0 (DME) diabetic supplies, miscellan. Misc See Rx Instructions .ROUTE Qty: 1 RF: 0 No Action calcium carbonate-vitamin D3 [Caltrate with Vitamin D3] 600 mg(1,500mg) -800 unit tablet 1 tab PO DAILY RF: 0 docusate sodium [Colace] 100 mg capsule 100 mg PO BID RF: 0 medroxyprogesterone [Depo-Provera] 150 mg/mL suspension IM RF: 0 fluticasone propionate 50 mcg/actuation spray,suspension 1 spray INTRANASAL BID RF: 0 ibuprofen 600 mg tablet 600 mg PO BID PRNRF: 0 acetaminophen [Mapap (acetaminophen)] 325 mg tablet 325 mg PO QID PRNRF: 0 cetirizine [Zyrtec] 10 mg tablet 10 mg PO DAILY RF: 0 (DME) blood-glucose meter Kit See Rx Instructions .ROUTE .MEDSUPPLY Qty: 1 RF: 0 multivitamin with iron PO DAILY RF: 0 Osmolite 1.5 Sudeep 0.06 gram-1.5 kcal/mL liquid PO RF: 0 ziprasidone HCl 60 mg capsule 60 mg PO BID Qty: 60 RF: 0 lamotrigine 100 mg tablet 100 mg PO BID Qty: 60 RF: 0 polyethylene glycol 3350 [Miralax] 17 gram/dose powder 17 gm PO DAILY Qty: 510 RF: 5 Coppertone Sport Lotion as directed RF: 0 triamcinolone acetonide 0.1 % cream 1 applic TOPICAL .evening only PRN (Reason: itching) Qty: 30 RF: 0 Discharge Orders: Discharge ED (Routine); Ordered 12/30/20 Ordered By: Khadra Lopes Referrals: Uma Esteban FNP [Primary Care Provider] - Ochoa Graham DO [Physician] - Activity Restrictions/Additional Instructions: As we discussed you need to follow-up with a primary care provider at [facility] as soon as possible so they may continue to monitor patient's medications. Coding Level of Care Code ED See Supervisor for Artemio Eric
[2020-12-30 09:58] VITALS: BP 127/85; PULSE 81; RESP 14; O2SAT 95
== END 2020-12-30 09:59 | disposition home or self-care (01) ==
PROVIDERS: Emergency Provider Physician Assistant; PCP Nurse Practitioner Family
DX: Z76.0 Encounter for issue of repeat prescription (principal); F84.0 Autistic disorder
CPT/HCPCS: 99281

== ENCOUNTER → 2022-04-19 14:04 | Outpatient (BNVA) | payer MEDICAID, SELFPAY | PROVIDERS: PCP Nurse Practitioner Family; Visit Provider Nurse Practitioner Family | DX: J02.9 Acute pharyngitis, unspecified (principal); R05.9 Cough, unspecified; J10.1 Influenza due to other identified influenza virus with other respiratory manifestations; K21.9 Gastro-esophageal reflux disease without esophagitis | CPT/HCPCS: 87400; 87880 ==

== ENCOUNTER → 2022-05-19 10:13 | Outpatient (BNVA) | payer MEDICAID, SELFPAY | PROVIDERS: PCP Nurse Practitioner; Visit Provider Nurse Practitioner | DX: K59.01 Slow transit constipation (principal); R32 Unspecified urinary incontinence; J30.89 Other allergic rhinitis; J30.2 Other seasonal allergic rhinitis; Z30.42 Encounter for surveillance of injectable contraceptive; E11.65 Type 2 diabetes mellitus with hyperglycemia; N39.3 Stress incontinence (female) (male) | CPT/HCPCS: 80053; 80061; 81000; 82043; 83036; 85025 ==

== ENCOUNTER → 2022-06-10 09:26 | Outpatient (BNVA) | payer MEDICAID, SELFPAY | PROVIDERS: PCP Nurse Practitioner; Visit Provider Nurse Practitioner | DX: N91.2 Amenorrhea, unspecified (principal); Z30.42 Encounter for surveillance of injectable contraceptive | CPT/HCPCS: 81025 ==

== ENCOUNTER 2022-07-14 16:25 | Outpatient (CLI) | payer MEDICAID, SELFPAY | END 2022-07-14 16:26 | disposition home or self-care (01) | LOC: SPT 16:26 | PROVIDERS: PCP Nurse Practitioner; Visit Provider Student in an Organized Health Care Education/Training Program | DX: Z46.89 Encounter for fitting and adjustment of other specified devices (principal); S52.591D Other fractures of lower end of right radius, subsequent encounter for closed fracture with routine healing; X58.XXXD Exposure to other specified factors, subsequent encounter | CPT/HCPCS: 25600; 97760; 99204; L3982 ==

== ENCOUNTER → 2022-08-11 11:23 | Outpatient (BNVA) | payer MEDICAID, SELFPAY | PROVIDERS: PCP Nurse Practitioner; Visit Provider Student in an Organized Health Care Education/Training Program | DX: S52.501A Unspecified fracture of the lower end of right radius, initial encounter for closed fracture (principal); E11.65 Type 2 diabetes mellitus with hyperglycemia; J30.89 Other allergic rhinitis; X58.XXXA Exposure to other specified factors, initial encounter; J30.2 Other seasonal allergic rhinitis; N39.3 Stress incontinence (female) (male); K59.01 Slow transit constipation; Z30.42 Encounter for surveillance of injectable contraceptive; F81.9 Developmental disorder of scholastic skills, unspecified; Z79.84 Long term (current) use of oral hypoglycemic drugs | CPT/HCPCS: 73110; 80053; 81000; 83036; 84443 ==

== ENCOUNTER 2022-08-11 14:44 | Outpatient (CLI) | payer MEDICAID, SELFPAY | END 2022-08-11 14:45 | disposition home or self-care (01) | LOC: SPT 14:45 | PROVIDERS: PCP Nurse Practitioner; Visit Provider Student in an Organized Health Care Education/Training Program | DX: Z46.89 Encounter for fitting and adjustment of other specified devices (principal); S52.591D Other fractures of lower end of right radius, subsequent encounter for closed fracture with routine healing; X58.XXXD Exposure to other specified factors, subsequent encounter | CPT/HCPCS: 97760; 99213; L3908 ==

== ENCOUNTER → 2022-09-21 08:20 | Outpatient (BNVA) | payer MEDICAID, SELFPAY | PROVIDERS: PCP Nurse Practitioner; Visit Provider Internal Medicine Nephrology | DX: E11.65 Type 2 diabetes mellitus with hyperglycemia (principal); N18.1 Chronic kidney disease, stage 1 | CPT/HCPCS: 80069; 82570; 84156; 85025 ==

== ENCOUNTER → 2022-10-20 11:28 | Outpatient (BNVA) | payer MEDICAID, SELFPAY | PROVIDERS: PCP Nurse Practitioner; Visit Provider Student in an Organized Health Care Education/Training Program | DX: S52.501D Unspecified fracture of the lower end of right radius, subsequent encounter for closed fracture with routine healing (principal); X58.XXXD Exposure to other specified factors, subsequent encounter | CPT/HCPCS: 73110; 99213 ==

== ENCOUNTER → 2022-10-26 09:29 | Outpatient (BNVA) | payer MEDICAID, SELFPAY | PROVIDERS: PCP Nurse Practitioner; Visit Provider Nurse Practitioner | DX: E11.65 Type 2 diabetes mellitus with hyperglycemia (principal); Z30.42 Encounter for surveillance of injectable contraceptive; N39.3 Stress incontinence (female) (male) | CPT/HCPCS: 80061; 81000; 83036; 85025 ==

== ENCOUNTER → 2023-01-12 15:00 | Outpatient (BNVA) | payer MEDICAID, SELFPAY | PROVIDERS: PCP Nurse Practitioner; Visit Provider Nurse Practitioner | DX: E11.65 Type 2 diabetes mellitus with hyperglycemia (principal); L57.8 Other skin changes due to chronic exposure to nonionizing radiation; Z71.89 Other specified counseling | CPT/HCPCS: 80053; 80061; 81000; 83036 ==

== ENCOUNTER → 2023-03-29 16:22 | Outpatient (BNVA) | payer MEDICAID, SELFPAY | PROVIDERS: PCP Nurse Practitioner; Visit Provider Nurse Practitioner | DX: E11.65 Type 2 diabetes mellitus with hyperglycemia (principal); N39.3 Stress incontinence (female) (male) | CPT/HCPCS: 80053; 81000; 83036; 85025 ==

== ENCOUNTER → 2023-06-02 15:02 | Outpatient (BNVA) | payer MEDICAID, SELFPAY | PROVIDERS: PCP Nurse Practitioner; Visit Provider Nurse Practitioner Family | DX: R05.9 Cough, unspecified (principal) | CPT/HCPCS: 87400; 87426 ==

== ENCOUNTER → 2023-06-21 15:10 | Outpatient (BNVA) | payer MEDICAID, SELFPAY | PROVIDERS: PCP Nurse Practitioner; Visit Provider Nurse Practitioner | DX: E11.65 Type 2 diabetes mellitus with hyperglycemia (principal); Z30.42 Encounter for surveillance of injectable contraceptive; Z71.89 Other specified counseling; N39.3 Stress incontinence (female) (male) | CPT/HCPCS: 80053; 80061; 81000; 83036 ==

== ENCOUNTER → 2023-09-13 16:00 | Outpatient (BNVA) | payer MEDICAID, SELFPAY | PROVIDERS: PCP Nurse Practitioner; Visit Provider Nurse Practitioner | DX: E11.9 Type 2 diabetes mellitus without complications (principal) | CPT/HCPCS: 80053; 81000; 82607; 83036 ==

== ENCOUNTER → 2023-10-24 15:06 | Outpatient (BNVA) | payer MEDICAID, SELFPAY | PROVIDERS: PCP Nurse Practitioner; Visit Provider Nurse Practitioner Family | DX: R31.9 Hematuria, unspecified (principal) | CPT/HCPCS: 81000 ==

== ENCOUNTER → 2023-11-07 14:48 | Outpatient (BNVA) | payer MEDICAID, SELFPAY | PROVIDERS: PCP Nurse Practitioner; Visit Provider Nurse Practitioner | DX: M25.562 Pain in left knee (principal) | CPT/HCPCS: 73562 ==

== ENCOUNTER → 2024-01-24 16:30 | Outpatient (BNVA) | payer MEDICAID, SELFPAY | PROVIDERS: PCP Nurse Practitioner; Visit Provider Nurse Practitioner | DX: E11.9 Type 2 diabetes mellitus without complications (principal) | CPT/HCPCS: 80053; 80061; 81000; 82607; 83036 ==

== ENCOUNTER → 2024-04-10 15:54 | Outpatient (BNVA) | payer MEDICAID, SELFPAY | PROVIDERS: PCP Nurse Practitioner; Visit Provider Nurse Practitioner | DX: E11.9 Type 2 diabetes mellitus without complications | CPT/HCPCS: 80053; 83036 ==

== ENCOUNTER → 2024-07-15 16:50 | Outpatient (BNVA) | payer MEDICAID, SELFPAY | PROVIDERS: PCP Nurse Practitioner; Visit Provider Nurse Practitioner | DX: E11.65 Type 2 diabetes mellitus with hyperglycemia (principal); E11.9 Type 2 diabetes mellitus without complications | CPT/HCPCS: 80053; 80061; 81000; 83036; 83721 ==

== ENCOUNTER → 2024-08-28 08:20 | Outpatient (BNVA) | payer MEDICAID, SELFPAY | PROVIDERS: PCP Nurse Practitioner; Visit Provider Clinical Nurse Specialist Adult Health | DX: N39.3 Stress incontinence (female) (male) (principal) | CPT/HCPCS: 81003; 87086 ==

== ENCOUNTER → 2024-10-03 08:22 | Outpatient (BNVA) | payer MEDICAID, SELFPAY | PROVIDERS: PCP Nurse Practitioner; Visit Provider Nurse Practitioner | DX: E11.65 Type 2 diabetes mellitus with hyperglycemia (principal) | CPT/HCPCS: 80053; 80061; 83036 ==

== ENCOUNTER → 2024-10-22 17:12 | Outpatient (BNVA) | payer MEDICAID, SELFPAY | PROVIDERS: PCP Nurse Practitioner; Visit Provider Nurse Practitioner | DX: Z12.4 Encounter for screening for malignant neoplasm of cervix (principal) | CPT/HCPCS: 88175 ==

== ENCOUNTER 2024-11-20 18:14 | Emergency (ER) | payer MEDICAID, SELFPAY ==
--- OUTSIDE RECORDS SUMMARY | 2023-08-03 08:00 | XMS_ITS | Continuity of Care Document ---
Author Organization [facility] Address [id number] [address] Phone Care Team Providers Care Physical Sciences Professor Name Role Phone Saul Vargas DMD Unavailable Unavailable Allergies, Adverse Reactions, Alerts Substance Reaction Status Criticality No Known Allergies Active No Inform ation Medications Medication Instructions Dosage Effective Dates (start - stop) Status Comments Farxiga 10 mg tablet take 1 tablet by oral route every day in the morning 10 MG - Active desmopressin 0.1 mg tablet take 1 tablet by oral route 2 times every day 0.1 MG - Active fluoxetine 40 mg capsule take 1 capsule by oral route every day in the morning 40 MG - Active medroxyprogesterone 150 mg/mL intramuscular syringe inject 1 milliliter by intramuscular route every 3 months 150 MG - Active Riomet ER 500 mg/5 mL oral suspension,extended release take 5 milliliter by oral route every day with the evening meal - Active melatonin 5 mg capsule - Active oxcarbazepine 150 mg tablet take 2 tablet by oral route 2 times every day 300 MG - Active oxybutynin chloride ER 15 mg tablet,extended release 24 hr take 1 tablet by oral route every day 15 MG - Active rosuvastatin 10 mg tablet take 1 tablet by oral route every day 10 MG - Active ziprasidone 80 mg capsule take 1 capsule by oral route 2 times every day with food 80 MG - Active acetaminophen 325 mg/10.15 mL oral solution take 20.3 milliliter by oral route every 4 - 6 hours as needed 650 MG - Active Acetadryl 25 mg-500 mg tablet take 2 tablet by oral route every day at bedtime - Active Arnuity Ellipta 50 mcg/actuation powder for inhalation - Active Procedures Procedure Date Bitewings Four Films Intraoral Periapical First Film Intraoral Periapical Each Additional Film Intraoral Periapical Each Additional Film Intraoral Periapical Each Additional Film Periodic Oral Eval Est Patient - Adult Medicaid Exempt From Sealant Measure Prophylaxis Adult Topical Fluoride Varnish; Therapeutic Ap plication Resin-Based Composite One Surface, Posterior Resin-Based Composite Two Surfaces, Posterior Resin-Based Composite Two Surfaces, Posterior Comprehensive Oral Evaluatio n New Or Established Intraoral Periapical First Film Intraoral Periapical Each Additional Film Intraoral Periapical Each Additional Film Intraoral Periapical Each Additional Film Panoramic Film Bitewings Four Films Advance Directives Directive Yes / No Effective Date File Name No Information Encounters Encounter Description Practice Location Reason(s) For Visit Diagnoses Date Provider Providers Copied on Encounter [facility], [id number] [place], [place], [id number], [place] tel:[phone] [facility] Encounter for dental exam and cleaning w/o abnormal findingsEncounter for prophylactic fluoride administration 4 Alicia Hughes. [address] [place] [address], [address], [place]. tel:[phone] Referring Provider: Saul Vargas, [address] [place] [address], [address]. tel:[phone] [facility], [id number] [place], [place], [id number], tel:[phone] [facility] No Information 3 Alicia Hughes. [address] [place] [address], [address], [place]. tel:[phone] Referring Provider: Saul Vargas, [address] [place], [address]. tel:[phone] [facility], [id number]- [facility], [place], [place], [id number], [place] tel:[phone] [facility] No Information 3 Alicia Hughes. [address] [place], [address], [place]. tel:[phone] Referring Provider: Saul Vargas, [address] [place] [address], [address]. tel:[phone] Family History Family Member Type Diagnosis Age At Onset No Information Payers Payer name Insurance type Covered alliance party ID Umer lopez(s) D Medicaid [id number] Social History Type Description Quantity Date Captured Comments Alcohol Use Details Unknown Caffeine Use Details Unknown Tobacco Use Status Current non-smoker Smoking Status Never smoker Non-Smoking Tobacco Use Details : No Details Available : No Details Available Sex Female Gender Identity Female Chief Complaint And Reason For Visit No Information Reason For Referral Reason For Referral No Information History Of Present Illness Encounter Date Complaint History Of Prese nt Illness No Information Functional Status Date Functional Assessmen t No Information Instructions Date Instruction Additional Infor mation No Information Assessments Type Assessment Date No Information Patient Care Teams Name Effective Dates (start - stop) Status Members No Information
[2024-11-20 18:15] VITALS: BP 132/90; PULSE 95; RESP 18; TEMP 36.7; O2SAT 95
--- OUTSIDE RECORDS SUMMARY | 2024-11-20 18:20 | XMS_ITS | Patient Health Record ---
Author Organization [facility] Address [address] [place] [address] Care Team Providers Care Roofer Name Role Phone Frandy Monge Primary Care Provider [phone] Allergies No Known Allergies Reason For Referral No Information Medications Medication SIG (Take, Route, Frequency, Duration) Notes Start Date End Date Status Fluoxetine Active Insulin Admin Supplies Active metFORMIN HCl 1000 MG Tablet 1 tablet with a meal Orally Once a day Active Multi Vitamin Active Benzoyl Peroxide 10 % Gel 1 application Externally Once a day Active Cetirizine HCl 10 MG Tablet 1 tablet Orally Once a day Not-Taking/PRN clonazePAM 0.5 MG Tablet 1 tablet at bedtime Orally Once a day Active Colace 100 MG Capsule 1 capsule as neede d Orally Once a day Active Polyethylene Glycol Active OXcarbazepine 150 MG Tablet 1 tablet Orally Twice a day Active Social History Sex Assigned At : Social History Observation Description Sex Assigned At Female Social History Additional Details Category Social Info Options Details Migrated Social History Social History: (Alcohol):No (Caffine):Yes (Illicit Drugs):No (Sexually Active):No (Smoking): status: Non smoker Problems Problem Type SNOMED Code ICD Code Onset Dates Problem Status W/U Status Risk Notes Problem Acute pharyngitis (974942693) Acute pharyngitis, unspecified (J02.9) Active confirmed Problem Acute upper respiratory infection (20566711) Acute upper respiratory infection, unspecified (J06.9) Active confirmed Problem Cellulitis of left toe (4020999833) Cellulitis of left toe (L03.032) Active confirmed Plan Of Treatment No Information Insurance Providers Payer Name Payer Address Payer Phone Subscriber Number Group Number Insured Name Patient Relationship to Insured Coverage Start Date Coverage End Date Medicaid Dental [address] [place] [address] [id number] FAVIO RENDON [place] Self - patient is the insured Medical (General) History Medical History History ICD Code Diabetes II Mental disabilities Sinus trouble Surgical History Surgery Date(Month/Year) feeding tube surgery
--- NOTE | 2024-11-20 18:37 | W.ED.PSYCHS ---
HPI - Psych General: Chief Complaint: Psychiatric Symptoms Stated Complaint: S/I Time Seen by Provider: 11/20/24 18:19 History of Present Illness: 29-year-old female presents because she feels like she needs help with anger management. Patient has some underlying developmental delay. Lives in a home with another roommate. That she got very angry at her roommate and was breaking stuff. Patient reports that she has some suicidal thoughts but no plan. She reports she was just angry with her roommate and wants some help with her anger issues and suicidal thoughts. Patient also is not happy with her roommate reports that she cannot go back living in her situation. Related Data Home Medications ?Medication ?Instructions ?Recorded ?Confirmed Coppertone Sport Lotion as directed 07/24/19 10/22/24 oxcarbazepine 300 mg tablet 300 mg PO BID 04/19/22 10/22/24 trazodone 50 mg tablet 50 mg PO DAILY PRN sleep 04/19/22 10/22/24 ziprasidone HCl 80 mg capsule 80 mg PO BID 04/19/22 10/22/24 fluoxetine 20 mg capsule (Prozac) 40 mg PO DAILY 07/15/24 10/22/24 Previous Rx's ?Medication ?Instructions ?Recorded lidocaine HCl 4 % topical liquid 1 ea topical .every 4 hours PRN 11/07/23 roll-on (Aspercreme (lidocaine #73 mL HCl)) MVW Complete Formulation 1 cap PO .2 time day #60 caps 01/24/24 Multivitamin 1,500 unit-800 mcg capsule (pediatric multivit 61-D3-vit K) calcium carbonate (Tums) 400 mg (2 x 200 mg calcium (500 01/24/24 mg)) PO BID PRN dyspepsia #40 tabs clotrimazole-betamethasone 1 1 applic topical BID PRN itching 01/24/24 %-0.05 % topical cream #45 grams diphenhydramine HCl 25 mg tablet 25 mg PO TID PRN allergy symptoms 01/24/24 (Benadryl Allergy) #30 tabs promethazine-DM 6.25 mg-15 mg/5 mL 5 ml PO Q6H PRN cough #240 mL 01/24/24 oral syrup fluticasone propionate 50 1 spray intranasal BID PRN allergy 04/28/24 mcg/actuation nasal symptoms #16 grams spray,suspension carbamide peroxide 6.5 % ear drops 5 drp otic (ear) .at bedtime 5 07/15/24 (Debrox) days #15 mL acetaminophen 325 mg tablet 975 mg (3 x 325 mg) PO Q6H PRN 08/08/24 fever or pain #90 tabs blood sugar diagnostic (Contour #50 ea 10/16/24 Plus Test Strip) blood-glucose meter (Contour Plus #1 ea 10/16/24 Blue Meter) lancets 30 gauge (Advocate Lancet) #100 ea 10/16/24 acarbose 50 mg tablet 50 mg PO TID #90 tabs 10/22/24 chlorhexidine gluconate 0.12 % 15 ml buccal BID #300 mL 10/22/24 mouthwash (Peridex) dapagliflozin propanediol 10 mg 10 mg PO QAM #30 tabs 10/22/24 tablet (Farxiga) desmopressin 0.1 mg tablet 0.1 mg PO .at bedtime #30 tabs 10/22/24 desogestrel-e.estradiol 0.15 1 tab PO DAILY #84 tabs 10/22/24 mg-0.02 mg(21)/e.estrad 0.01 mg(5) tablet (Azurette (28)) oxybutynin chloride 15 mg 15 mg PO DAILY #30 tabs 10/22/24 tablet,extended release 24 hr rosuvastatin 10 mg tablet 10 mg PO .at bedtime #30 tabs 10/22/24 valsartan 80 mg tablet (Diovan) 80 mg PO DAILY #30 tabs 10/22/24 metformin 500 mg tablet,extended 1,000 mg (2 x 500 mg) PO BID #120 10/23/24 release 24 hr tabs Allergies Allergy/AdvReac Type Severity Reaction Status Date / Time No Known Allergies Allergy Verified 10/22/24 16:16 Review of Systems Const: Denies: fever(s) or chills Card: Denies: chest pain or palpitations Resp: Denies: dyspnea or productive cough GI: Denies: abdominal pain, nausea or vomiting Skin/Breast: Denies: rash or pruritus PFSH ED PFSH: Medical History ARMAND (stress urinary incontinence, female) Type 2 diabetes mellitus with hyperglycemia, without long-term current use of insulin Seasonal and perennial allergic rhinitis Constipation, slow transit Borderline personality disorder Bipolar disorder, current episode hypomanic Acute pancreatitis with infected necrosis Intellectual delay ADHD Autistic disorder OCD (obsessive compulsive disorder) Oppositional defiant disorder Schizophrenia, unspecified Uses feeding tube Not currently using feeding tube. Surgical History History of gastrostomy tube placement subsequently removed Family History Denies family history of Colon cancer Ovarian cancer Diabetes Heart disease Breast cancer Bleeding disorder Hypertension Uterine cancer Thyroid disease Stroke Social History Smoking and tobacco/nicotine status: never used tobacco/nicotine Second hand smoke exposure: No Alcohol intake: never Substance/Drug Use: never Additional social history: - Tobacco use: never Alcohol use: never Drug use: never Adopted: Yes Caregiver/support person: Yes Lives independently: No Household members: caregiver Housing: House Marital status: Single Number of children: 0 Number of grandchildren: 0 Highest education level completed: High School Graduate service: No Current occupational status: disabled Current occupational exposures/hazards: No Pets and animals: Yes Do you think of yourself as: Straight/Heterosexual Current gender identity: Female Physical Exam Const: COMMON NORMALS: no acute distress, patient oriented x3 and alert Resp: COMMON NORMALS: normal respiratory effort and No use of accessory muscles Cardio: COMMON NORMALS: regular rate and regular rhythm RATE: regular rate RHYTHM: regular rhythm GI: COMMON NORMALS: Soft to palpation and non-tender PALPATION: Yes Soft to palpation Extremity: COMMON NORMALS: normal to inspection and capillary refill normal Neuro: COMMON NORMALS: patient oriented x3, moves all extremities and no focal motor deficits SENSORIUM/ORIENTATION: Yes alert Psych: COMMON NORMALS: mental status grossly normal and cooperative Skin: COMMON NORMALS: no rashes or lesions noted and turgor normal GENERAL SKIN EXAM: no rashes or lesions noted and turgor normal Course Vital Signs: Vital signs: Vital Signs Temperature 98.1 F 11/20/24 18:15 Pulse Rate 95 11/20/24 18:15 Respiratory Rate 18 11/20/24 18:15 Blood Pressure 132/90 11/20/24 18:15 Pulse Oximetry 95 11/20/24 18:15 Oxygen Delivery Me thod Room Air 11/20/24 18:15 MDM - Psych Medical Decision Making Patient is medically clear but after visiting with patient there is no indication for add admission to inpatient psychiatric at this time. She is not homicidal or suicidal. She admits that she only made the statement because she was angry. I did recommend to her and staff that if she continues to feel she needs help with her anger issues she can follow-up with behavioral health on outpatient basis and recommended they work on getting living arrangements that are better for her and her roommate. Patient was stable and discharged home Lab Data 11/20/24 19:15 11/20/24 19:15 Laboratory Results WBC 10.41 10^3/uL (3.29-11.43) 11/20/24 19:15 RBC 5.09 10^6/uL (3.85-5.65) 11/20/24 19:15 Hgb 14.10 g/dL (11.27-16.99) 11/20/24 19:15 Hct 43.1 % (36-47) 11/20/24 19:15 MCV 84.7 fl (85-98) L 11/20/24 19:15 MCH 27.7 pg (27-33) 11/20/24 19:15 MCHC 32.7 g/dL (30-55) 11/20/24 19:15 RDW 12.8 % (12.1-15.1) 11/20/24 19:15 Plt Count 232 10^3/cmm (157-399) 11/20/24 19:15 MPV 9.9 fL (7.4-10.4) 11/20/24 19:15 Neut % (Auto) 60.4 % 11/20/24 19:15 Lymph % (Auto) 30.3 % 11/20/24 19:15 [place] % (Auto) 6.5 % 11/20/24 19:15 Eos % (Auto) 1.9 % 11/20/24 19:15 Baso % (Auto) 0.5 % 11/20/24 19:15 Neut # (Auto) 6.29 10^3/uL (1.8-7.7) 11/20/24 19:15 Lymph # (Auto) 3.2 10^3/uL (0.8-4.8) 11/20/24 19:15 [place] # (Auto) 0.7 10^3/uL (0.2-0.9) 11/20/24 19:15 Eos # (Auto) 0.2 10^3/uL (0.0-0.8) 11/20/24 19:15 Baso # (Auto) 0.1 10^3/uL (0.0-0.1) 11/20/24 19:15 Nucleated RBC % (auto) 0 % 11/20/24 19:15 Nucleated RBCs # 0.0 /100WBC 11/20/24 19:15 Sodium 139 mmol/L (136-145) 11/20/24 19:15 Potassium 4.1 mmol/L (3.5-5.1) 11/20/24 19:15 Chloride 103 mmol/L (98-107) 11/20/24 19:15 Carbon Dioxide 21 mmol/L (22-29) L 11/20/24 19:15 Anion Gap 19.1 (5-19) H 11/20/24 19:15 BUN 13 mg/dL (6-20) 11/20/24 19:15 Creatinine 0.7 mg/dL (0.5-0.9) 11/20/24 19:15 GFR Calculation 98.3 mL/min (90-130) 11/20/24 19:15 Glucose 119 mg/dL (65-115) H 11/20/24 19:15 Calculated Osmolality 289 mOsm/kg (285-295) 11/20/24 19:15 Calcium 9.4 mg/dL (8.5-10.5) 11/20/24 19:15 Total Bilirubin 0.3 mg/dL (0.15-1.2) 11/20/24 19:15 AST 13 U/L (0-32) 11/20/24 19:15 ALT 13 U/L (0-33) 11/20/24 19:15 Alkaline Phosphatase 52 U/L (35-105) 11/20/24 19:15 Total Protein 7.0 g/dL (6.6-8.7) 11/20/24 19:15 Albumin 4.2 g/dL (3.5-5.2) 11/20/24 19:15 Globulin 2.8 g/dL (1.3-4.6) 11/20/24 19:15 Urine Color Yellow (Yellow) 11/20/24 19:13 Urine Appearance Clear (CLEAR) 11/20/24 19:13 Urine pH 6.5 (5-7) 11/20/24 19:13 Ur Specific [place] 1.021 (1.005-1.030) 11/20/24 19:13 Urine Protein 1+ (Negative) A 11/20/24 19:13 Urine Glucose (UA) 1+ (Normal) H 11/20/24 19:13 Urine Ketones Negative (Negative) 11/20/24 19:13 Urine Blood Negative (Negative) 11/20/24 19:13 Urine Nitrate Negative (Negative) 11/20/24 19:13 Urine Bilirubin Negative (Negative) 11/20/24 19:13 Urine Urobilinogen 0.2 mg/dL (Negative) 11/20/24 19:13 Ur Leukocyte Esterase Negative (Negative) 11/20/24 19:13 Urine RBC 0-2 /hpf (0-2) 11/20/24 19:13 Urine WBC 21-50 /hpf (0-5) H 11/20/24 19:13 Ur Squamous Epith Cells 11-20 /hpf (0-5) H 11/20/24 19:13 Amorphous Sediment Not Reportable 11/20/24 19:13 Urine Bacteria 2+ /hpf (NONE) H 11/20/24 19:13 Hyaline Casts 1.21 /lpf 11/20/24 19:13 Salicylates < 0.3 mg/dL (3-10) L 11/20/24 19:15 Urine Opiates Screen Negative ng/mL (Negative) 11/20/24 19:13 Acetaminophen < 5.0 ug/mL (10-30) L 11/20/24 19:15 Ur Barbiturates Screen Negative ng/mL (Negative) 11/20/24 19:13 Ur Phencyclidine Scrn Negative ng/mL (Negative) 11/20/24 19:13 Ur Amphetamines Screen Negative ng/mL (Negative) 11/20/24 19:13 U Benzodiazepines Scrn Negative ng/mL (Negative) 11/20/24 19:13 Urine Cocaine Screen Negative ng/mL (Negative) 11/20/24 19:13 U Marijuana (THC) Screen Negative ng/mL (Negative) 11/20/24 19:13 Ethyl Alcohol < 10 mg/dL (0-10) 11/20/24 19:15 No radiology studies performed this visit Discharge Plan Discharge Patient Disposition: Home Clinical Impression: Anger reaction Condition: Stable Prescriptions: No Action Coppertone Sport Lotion as directed trazodone 50 mg tablet 50 mg PO DAILY PRN (Reason: sleep) ziprasidone HCl 80 mg capsule 80 mg PO BID Rx Instructions: give with food (meal/snack) oxcarbazepine 300 mg tablet 300 mg PO BID Rx Instructions: 8 am and 8 pm calcium carbonate [Tums] 200 mg calcium (500 mg) tablet,chewable 400 mg PO BID PRN (Reason: dyspepsia) Qty: 40 2RF Rx Instructions: flavored clotrimazole-betamethasone 1-0.05 % cream 1 applic topical BID PRN (Reason: itching) Qty: 45 2RF Rx Instructions: large area hands and feet diphenhydramine HCl [Benadryl Allergy] 25 mg tablet 25 mg PO TID PRN (Reason: allergy symptoms) Qty: 30 2RF MVW Complete Formul Multivit 1,500-800 unit-mcg capsule 1 cap PO .2 time day Qty: 60 5RF promethazine-DM 6.25-15 mg/5 mL syrup 5 ml PO Q6H PRN (Reason: cough) Qty: 240 2RF lidocaine HCl [Aspercreme (lidocaine HCl)] 4 % liquid roll-on 1 ea topical .every 4 hours PRN Qty: 73 0RF Rx Instructions: apply to achy muscle or joint fluoxetine [Prozac] 20 mg capsule 40 mg PO DAILY Debrox 6.5 % drops 5 drp otic (ear) .at bedtime 5 Days Qty: 15 0RF acetaminophen 325 mg tablet 975 mg PO Q6H PRN (Reason: fever or pain) Qty: 90 0RF Farxiga 10 mg tablet 10 mg PO QAM Qty: 30 2RF acarbose 50 mg tablet 50 mg PO TID Qty: 90 2RF Rx Instructions: take before food chlorhexidine gluconate [Peridex] 0.12 % mouthwash 15 ml buccal BID Qty: 300 1RF desmopressin 0.1 mg tablet 0.1 mg PO .at bedtime Qty: 30 2RF desog-e.estradiol/e.estradiol [Azurette (28)] 0.15-0.02 mgx21 /0.01 mg x 5 tablet 1 tab PO DAILY Qty: 84 0RF oxybutynin chloride 15 mg tablet extended release 24hr 15 mg PO DAILY Qty: 30 2RF rosuvastatin 10 mg tablet 10 mg PO .at bedtime Qty: 30 2RF valsartan [Diovan] 80 mg tablet 80 mg PO DAILY Qty: 30 2RF metformin 500 mg tablet extended release 24 hr 1,000 mg PO BID Qty: 120 2RF fluticasone propionate 50 mcg/actuation spray,suspension 1 spray INTRANASAL BID PRN (Reason: allergy symptoms) Qty: 16 2RF (DME) blood-glucose meter [Contour Plus Blue Meter] Misc See Rx Instructions .ROUTE .MEDSUPPLY Qty: 1 0RF Rx Instructions: As directed (DME) Contour Plus Test Strip Strip See Rx Instructions .ROUTE .MEDSUPPLY Qty: 50 5RF Rx Instructions: use one daily (DME) lancets [Advocate Lancet] 30 gauge misc See Rx Instructions .Route Qty: 100 3RF Rx Instructions: use one daily Discharge Orders: Discharge ED (Routine); Ordered 11/20/24 Ordered By: Brenden Proctor Referrals: Ronald Nova, WILLIANC [Primary Care Provider, Family Practice] Discharge Diet: Usual diet Discharge Activity: Increase activity as tolerated Patient Instructions: Benefits of an Active Lifestyle (ED), Opioid Safety, Pain Management, Patient Portal & [place] Instructions Activity Restrictions/Additional Instructions: Please consider following up with behavioral health to help with your concerns for your anger outburst. Please continue to work with staff to find an living situation you like better. Follow with their primary care provider and behavioral health physicians in the next 1 to 2 days as needed. 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
[2024-11-20 19:25] LABS: Glucose Urine UA 1+ (Normal); Nitrate Urine Negative (Negative); Specific Gravity, Urine 1.021 (1.005-1.030)
[2024-11-20 19:28] LABS: Hematocrit 43.1 % (36-47); Hemoglobin 14.10 g/dL (11.27-16.99); Mean Corpuscular HGB Conc 32.7 g/dL (30-55); Mean Corpuscular Hemoglobin 27.7 pg (27-33); Mean Corpuscular Volume 84.7 fl (85-98); Nucleated Red Blood Cells % 0 %; Platelet Count 232 10^3/cmm (157-399); Red Blood Count 5.09 10^6/uL (3.85-5.65); White Blood Count 10.41 10^3/uL (3.29-11.43)
[2024-11-20 19:28] LABS: Add Urine Microscopic? YES
[2024-11-20 19:32] LABS: PCP Screen Urine Negative (Negative)
[2024-11-20 19:47] LABS: Alanine Aminotransferase 13 U/L (0-33); Albumin Level 4.2 g/dL (3.5-5.2); Alkaline Phosphatase 52 U/L (35-105); Anion Gap 19.1 (5-19); Aspartate Amino Transferase 13 U/L (0-32); Blood Urea Nitrogen 13 mg/dL (6-20); Calcium 9.4 mg/dL (8.5-10.5); Carbon Dioxide 21 mmol/L (22-29); Chloride 103 mmol/L (98-107); Globulin 2.8 g/dL (1.3-4.6); Glucose 119 mg/dL (65-115); Osmolality Calculated 289 mOsm/kg (285-295); Potassium 4.1 mmol/L (3.5-5.1); Sodium 139 mmol/L (136-145); Total Protein 7.0 g/dL (6.6-8.7)
[2024-11-20 19:48] LABS: Acetaminophen < 5.0 ug/mL (10-30); Alcohol Level < 10 mg/dL (0-10); Salicylate < 0.3 mg/dL (3-10)
[2024-11-20 20:18] VITALS: BP 135/78; PULSE 88; RESP 16; O2SAT 97
[2024-11-20 20:48] LABS: HCG Qualitative Urine. Negative (Negative)
== END 2024-11-20 20:20 | disposition home or self-care (01) ==
PROVIDERS: Emergency Provider Student in an Organized Health Care Education/Training Program; PCP Nurse Practitioner
DX: R45.4 Irritability and anger (principal); Z79.84 Long term (current) use of oral hypoglycemic drugs; E11.9 Type 2 diabetes mellitus without complications
CPT/HCPCS: 36415; 80053; 80306; 80307; 81001; 81025; 85025; 87077; 87086; 87186; 99283

== ENCOUNTER 2024-12-29 15:44 | Emergency (ER) | payer MEDICAID, SELFPAY ==
[2024-12-29 15:45] VITALS: BP 125/89; PULSE 92; RESP 16; O2SAT 97
--- OUTSIDE RECORDS SUMMARY | 2024-12-29 15:51 | XMS_ITS | Clinical Summary ---
Author Organization [facility] Facility Address [address] [place] [address] Care Team Providers Care Pressed Or Blown Glass Worker Name Role Phone Ronald Nova Primary Care Provider Allergies No known active allergies Medications fluticasone (FLONASE) 50 MCG/ACT nasal spray Administer 1 spray into each nostril 1 (one) time each day Active metFORMIN (FORTAMET) 1000 MG 24 hr tablet Take 1,000 mg by mouth in the morning and 1,000 mg in the evening. Take with meals. Do not crush, chew, or split. . Active oxybutynin XL (DITROPAN-XL) 10 MG 24 hr tablet Take 10 mg by mouth 1 (one) time each day Do not crush, chew, or split. Active ziprasidone (GEODON) 60 MG capsule Take 4 capsules by mouth Take 1 capsule by mouth every morning, and 3 capsule every night at bedtime Active acetaminophen (TYLENOL) 325 MG tablet Take 650 mg by mouth every 6 (six) hours if needed 2 Active FLUoxetine (PROzac) 20 MG capsule Take 20 mg by mouth every morning 3 Active rosuvastatin (CRESTOR) 10 MG tablet Take 10 mg by mouth 1 (one) time each day Active Multiple Vitamins-Mineral s (DEKAs Plus) capsule Take 1 capsule by mouth 1 (one) time each day 4 Active diphenhydrAMINE (BENADRYL) 25 MG capsule Take 25 mg by mouth in the morning and 25 mg in the evening and 25 mg before bedtime. Active desmopressin (DDAVP) 0.1 MG tablet Take 0.1 mg by mouth 1 (one) time each day Active CALCIUM CARBONATE ANTACID PO Take 500 mg by mouth in the morning and 500 mg in the evening. Active medroxyPROGESTER one (DEPO-PROVERA) 150 MG/ML injection Inject 150 mg into the shoulder, thigh, or buttocks every 3 (three) months Active clotrimazole-bet amethasone (LOTRISONE) cream Apply topically 2 (two) times a day Active Dapagliflozin Propanediol 10 MG tablet Take 10 mg by mouth 1 (one) time each day in the morning Active promethazine-dex tromethorphan (PROMETHAZINE-DM ) 6.25-15 MG/5ML syrup Take 15 mL by mouth every 6 (six) hours if needed for cough Active Active Problems Problem Noted Date Diagnosed Date Type 2 diabetes mellitus with diabetic nephropat hy 10/27/2021 Urinary incontinence 10/27/2021 Other proteinuria 10/25/2021 Mixed bipolar affective disorder, moderate 06/14 Encounters Date Type Department Care Team Description 10/08/2024 10:00 AM CDT Office Visit [facility], [address] [phone] Mariela Salgado NP Other proteinuria (Primary Dx) 10/08/2024 Documentation Only [facility], [address] [phone] Elisa Philip 10/08/2024 Results Follow-Up [facility], [facility] [address] [place] [phone] Caryn Bai MA 10/08/2024 Documentation Only [facility], [facility] [address] [place] [phone] Caryn Bai MA 10/08/2024 Documentation Only [facility], [facility] [address] [place] [phone] Caryn Bai MA 10/01/2024 Telephone [facility], [facility] [address] [place] [phone] Solid Tire FinisherCaryn MA from Last 3 Months Social History Tobacco Use Types Packs/Day Years Used Date Smoking Tobacco: Never Smokeless Tobacco: Never Alcohol Use Standard Drinks/Week Comments Never 0 (1 standard drink = 0.6 oz pur e alcohol) Comments Unknown Sex and Gender Information Value Date Recorded Sex Assigned at Not on file Legal Sex Female 12:56 PM EDT Gender Identity Not on file Sexual Orientation Not on file Last Filed Vital Signs Vital Sign Reading Time Taken Comments Blood Pressure 112/82 10/08/2024 10:01 AM CDT Pulse 68 10/08/2024 10:01 AM CDT Temperature - - Respiratory Rate - - Oxygen Saturation 96% 10/03/2022 9:23 AM CDT Inhaled Oxygen Concentration - - Weight 94.5 kg (208 lb 6.4 oz) 10/08/2024 10:01 AM CDT Height 175.3 cm (5' 9 ) 10/08/2024 10:01 AM CDT Body Mass Index 30.78 10/08/2024 10:01 AM CDT Plan of Treatment Health Maintenance Due Date Last Done Comments Pneumococcal Vaccine: Peds ( 0 to 5 Years) and At-Risk Patients (6 to 49 Years) (1 of 2 - PCV) 2013 Diabetes: Ophthalmology Exam 01/26/2021 Diabetes: Pedal Pulse Checked 01/26/2021 Diabetes: Sensory Foot Exam 01/26/2021 Diabetes: Visual Foot Exam 01/26/2021 Diabetes: Hemoglobin A1C 05/03/2022 02/01/2022, 0609/2021 Influenza Vaccine (#1) 2025 3, 06/15/2021, 04/07/2014 Hepatitis B Vaccine Completed 06/26/2020, 06/07/1995, 06/07/1995, Additional history exists Procedures Procedure Name Priority Date/Time Associated Diagnosis Comments RENAL FUNCTION PANEL Routine 10/03/2024 Chronic kidney disease, Stage II (mild) HEMOGLOBIN A1C Routine 10/27/2021 11:25 AM CDT Other proteinuria from Last 3 Months or Most Recently Relevant to Health Maintenance Results * Renal function panel (10/03/2024) Glucose 104 mg/dL PRINT/EXTE RNAL (NON-INTERFACE D LABS) BUN 13 mg/dL PRINT/EXTE RNAL (NON-INTERFACE D LABS) Creatinine 0.8 mg/dL PRINT/EXT ERNAL (NON-INTERFACE D LABS) Sodium 139 mEq/L PRINT/EXTE RNAL (NON-INTERFACE D LABS) Potassium 4.2 mEq/L PRINT/EXTE RNAL (NON-INTERFACE D LABS) Chloride 104 PRINT/EXTE RNAL (NON-INTERFACE D LABS) Carbon Dioxide 21 mmol/L PRINT /EXTERNAL (NON-INTERFACE D LABS) Calcium 9.0 mg/dL PRINT/EXTE RNAL (NON-INTERFACE D LABS) Albumin (Blood) 3.9 g/dL PRIN T/EXTERNAL (NON-INTERFACE D LABS) eGFR 84.8 PRINT/EXTE RNAL (NON-INTERFACE D LABS) Alkaline Phosphatase 51 U/L PRINT/EXTERNAL (NON-INTERFACE D LABS) Blood 10/03/2024 Narrative PRINT/EXTERNAL (NON-INTERFACED LABS) - 10/08/2024 3:05 PM CDT [facility] [address] [place] [address] Dr. Edmund Arnold, Administrative Specialist Mariela Salgado OUTSOLE BEVELER LAB BLOOD ORDERABLES Lucille l Result PRINT/EXTERNAL (NON-INTERFACED LABS) * (ABNORMAL) Hemoglobin A1c (10/27/2021 11:25 AM CDT) Hemoglobin A1C 5.9(H) <5.7 % of total Hgb [facility] Comment: For someone without known diabetes, a hemoglobin A1c value between 5.7% and 6.4% is consistent with prediabetes and should be confirmed with a follow-up test. For someone with known diabetes, a value <7% indicates that their diabetes is well controlled. A1c targets should be individualized based on duration of diabetes, age, comorbid conditions, and other considerations. This assay result is consistent with an increased risk of diabetes. Currently, no consensus exists regarding use of hemoglobin A1c for diagnosis of diabetes for children. Blood specimen (specimen) Venous blood / Unknown 10/27/2021 11:25 AM CDT 10/27/2021 11:26 AM CDT Narrative [facility] - 10/28/2021 3:54 PM CDT FASTING:NO FASTING: NO Resulting Agency Comment Performing Organization Information: Site ID: [id number] Name: [facility] Address: [address] [phone] Director: Nehemias Villatoro D.O., MPH Yanique Thomas DO LAB BLOOD ORDERABLES F inal Result [facility] from Last 3 Months or Most Recently Relevant to Health Maintenance Insurance Medicaid [place] ([id number]) Care Teams Pressed Or Blown Glass Worker Relationship Specialty Start Date End Date Ronald Nova ARNP [address] [place] [phone] PCP - General Nurse Practitioner 05/11/22
--- OUTSIDE RECORDS SUMMARY | 2024-12-29 15:51 | XMS_ITS | Patient Health Record ---
Author Organization [facility] Address [address] [place] [address] Care Team Providers Care Cvir Tech Name Role Phone Frandy Monge Primary Care Provider Allergies No Known Allergies Reason For Referral [...] Status W/U Status Risk Notes Problem Acute pharyngitis, unspecified (J02.9) Active confirmed Problem Acute upper respiratory infection (93891071) Acute upper respiratory infection, unspecified (J06.9) Active confirmed Problem Cellulitis of left toe (3293080911) Cellulitis of left toe (L03.032) Active confirmed Plan Of Treatment No Information Insurance Providers Payer Name Payer Address Payer Phone Subscriber Number Group Number Insured Name Patient Relationship to Insured Coverage Start Date Coverage End Date Medicaid Dental [address] [place] [address] [id number] FAVIO RENDON [place] Self - patient is the insured Medical (General) History Medical History History ICD Code Diabetes II Mental disabilities Sinus trouble Surgical History Surgery Date(Month/Year) feeding tube surgery
--- NOTE | 2024-12-29 16:03 | CTR_ITS ---
PROCEDURE INFORMATION: Exam: CT Head Without Contrast Exam date and time: 12/29/2024 4:23 PM Age: 29 years old Clinical indication: Pain and injury or trauma; Fall; Blunt trauma (contusions or hematomas); Without loss of consciousness; Headache not specified; Additional info: Trauma, headache TECHNIQUE: Imaging protocol: Computed tomography of the head without contrast. Radiation optimization: All CT scans at this facility use at least one of these dose optimization techniques: automated exposure control; mA and/or kV adjustment per patient size (includes targeted exams where dose is matched to clinical indication); or iterative reconstruction. COMPARISON: [place] [id number] 04/27/2019 10:47 AM RADIATION DOSE METRICS: Total DLP (mGy-cm): 1097.88 FINDINGS: Brain: Normal. No hemorrhage. Unremarkable white matter. No mass effect. Cerebral ventricles: No ventriculomegaly. Paranasal sinuses: Visualized sinuses are unremarkable. No fluid levels. Mastoid air cells: Visualized mastoid air cells are well aerated. Bones: Unremarkable. No acute fracture. Soft tissues: Unremarkable. CT/CT head wo con* [id number] IMPRESSION: No acute intracranial abnormality.
--- NOTE | 2024-12-29 16:04 | W.ED.HEATRA ---
HPI - Head Injury General: Chief complaint: Head Injury Stated complaint: poss concucssion Time Seen by Provider: 12/29/24 15:55 History of Present Illness: Chief complaint is hit head on a cabinet. About an hour prior to arrival patient states she hit her head hard on the cabinet. No loss of consciousness but she feels dizzy afterwards. She states the light bothers her eyes. She states she has a headache on the top of her head where she hit the cabinet. She is not on a blood thinner. No other area of pain or injury. No neck pain. She did not fall to the ground. Related Data Home Medications ?Medication ?Instructions ?Recorded ?Confirmed Coppertone Sport Lotion as directed 07/24/19 10/22/24 oxcarbazepine 300 mg tablet 300 mg PO BID 04/19/22 10/22/24 trazodone 50 mg tablet 50 mg PO DAILY PRN sleep 04/19/22 10/22/24 ziprasidone HCl 80 mg capsule 80 mg PO BID 04/19/22 10/22/24 fluoxetine 20 mg capsule (Prozac) 40 mg PO DAILY 07/15/24 10/22/24 Previous Rx's ?Medication ?Instructions ?Recorded MVW Complete Formulation 1 cap PO .2 time day #60 caps 01/24/24 Multivitamin 1,500 unit-800 mcg capsule (pediatric multivit 61-D3-vit K) calcium carbonate (Tums) 400 mg (2 x 200 mg calcium (500 01/24/24 mg)) PO BID PRN dyspepsia #40 tabs clotrimazole-betamethasone 1 1 applic topical BID PRN itching 01/24/24 %-0.05 % topical cream #45 grams promethazine-DM 6.25 mg-15 mg/5 mL 5 ml PO Q6H PRN cough #240 mL 01/24/24 oral syrup fluticasone propionate 50 1 spray intranasal BID PRN allergy 04/28/24 mcg/actuation nasal symptoms #16 grams spray,suspension carbamide peroxide 6.5 % ear drops 5 drp otic (ear) .at bedtime 5 07/15/24 (Debrox) days #15 mL acetaminophen 325 mg tablet 975 mg (3 x 325 mg) PO Q6H PRN 08/08/24 fever or pain #90 tabs blood sugar diagnostic (Contour #50 ea 10/16/24 Plus Test Strip) blood-glucose meter (Contour Plus #1 ea 10/16/24 Blue Meter) lancets 30 gauge (Advocate Lancet) #100 ea 10/16/24 acarbose 50 mg tablet 50 mg PO TID #90 tabs 10/22/24 chlorhexidine gluconate 0.12 % 15 ml buccal BID #300 mL 10/22/24 mouthwash (Peridex) dapagliflozin propanediol 10 mg 10 mg PO QAM #30 tabs 10/22/24 tablet (Farxiga) desmopressin 0.1 mg tablet 0.1 mg PO .at bedtime #30 tabs 10/22/24 desogestrel-e.estradiol 0.15 1 tab PO DAILY #84 tabs 10/22/24 mg-0.02 mg(21)/e.estrad 0.01 mg(5) tablet (Azurette (28)) oxybutynin chloride 15 mg 15 mg PO DAILY #30 tabs 10/22/24 tablet,extended release 24 hr rosuvastatin 10 mg tablet 10 mg PO .at bedtime #30 tabs 10/22/24 valsartan 80 mg tablet (Diovan) 80 mg PO DAILY #30 tabs 10/22/24 metformin 500 mg tablet,extended 1,000 mg (2 x 500 mg) PO BID #120 10/23/24 release 24 hr tabs diphenhydramine HCl 25 mg tablet 25 mg PO TID PRN allergy symptoms 11/23/24 (Benadryl Allergy) #30 tabs lidocaine HCl 4 % topical liquid 1 ea topical .every 4 hours PRN 11/23/24 roll-on (Aspercreme (lidocaine #73 mL HCl)) Allergies Allergy/AdvReac Type Severity Reaction Status Date / Time No Known Allergies Allergy Verified 10/22/24 16:16 [facility] ED [facility]: Medical History (Updated 12/29/24 @ 16:04 by Fortino Keller MD) ARMAND (stress urinary incontinence, female) Type 2 diabetes mellitus with hyperglycemia, without long-term current use of insulin Seasonal and perennial allergic rhinitis Constipation, slow transit Borderline personality disorder Bipolar disorder, current episode hypomanic Acute pancreatitis with infected necrosis Intellectual delay ADHD Autistic disorder OCD (obsessive compulsive disorder) Oppositional defiant disorder Schizophrenia, unspecified Uses feeding tube Not currently using feeding tube. Surgical History History of gastrostomy tube placement subsequently removed Family History Denies family history of Colon cancer Ovarian cancer Diabetes Heart disease Breast cancer Bleeding disorder Hypertension Uterine cancer Thyroid disease Stroke Social History Smoking and tobacco/nicotine status: never used tobacco/nicotine Second hand smoke exposure: No Alcohol intake: never Substance/Drug Use: never Additional social history: - Tobacco use: never Alcohol use: never Drug use: never Adopted: Yes Caregiver/support person: Yes Lives independently: No Household members: caregiver Housing: House Marital status: Single Number of children: 0 Number of grandchildren: 0 Highest education level completed: High School Graduate service: No Current occupational status: disabled Current occupational exposures/hazards: No Pets and animals: Yes Do you think of yourself as: Straight/Heterosexual Current gender identity: Female Physical Exam Narrative: EXAM NARRATIVE: Alert and oriented no acute distress. She is anxious. She has some mild swelling over the scalp and tenderness. No break in the skin. Pupils briskly reactive to light. She ambulates with normal gait. Neck is supple. No vertebral tenderness. She moves her neck freely. Normal conjunctiva. Speech is clear. No weakness in her arms or legs. Heart is regular rhythm. Lung sounds clear. No tenderness over her back. No abdominal tenderness. No rash in exposed areas. Skin warm and dry. No ataxia. Course Vital Signs: Vital signs: Vital Signs Pulse Rate 92 12/29/24 15:45 Respiratory Rate 16 12/29/24 15:45 Blood Pressure 125/89 12/29/24 15:45 Pulse Oximetry 97 12/29/24 15:45 Oxygen Delivery Me thod Room Air 12/29/24 15:45 MDM - Head Injury Medcial Decision Making Patient presents after hitting her head on a cabinet. Lower mechanism however she reports headaches and dizziness with that so after informed discussion we will proceed with CT of the head with low pretest probability. With her associated symptoms however will evaluate for intracranial hemorrhage. Concussion without hemorrhage is more likely. She denies any neck pain to suggest cervical strain. Denies any other area of injury. She denies being on blood thinner. I advised limits of CT and delayed presentations of hemorrhage to watch return for and activity restrictions. Advised outpatient follow-up and symptomatic treatment. Patient agrees with plan after informed discussion. Patient has digital media representative here with her as well. [employer] contributes to the history. CT head negative for acute process per radiology. Patient given Tylenol and will discharge with return follow-up instructions regarding delayed presentations of hemorrhage to watch and return for Lab Data Radiology Impressions Head CT 12/29/24 16:03 IMPRESSION: No acute intracranial abnormality. All radiology interpretation(s) finalized by discharge Discharge Plan Discharge Patient Disposition: Home Clinical Impression: Concussion Condition: Stable Prescriptions: No Action Coppertone Sport Lotion as directed trazodone 50 mg tablet 50 mg PO DAILY PRN (Reason: sleep) ziprasidone HCl 80 mg capsule 80 mg PO BID Rx Instructions: give with food (meal/snack) oxcarbazepine 300 mg tablet 300 mg PO BID Rx Instructions: 8 am and 8 pm calcium carbonate [Tums] 200 mg calcium (500 mg) tablet,chewable 400 mg PO BID PRN (Reason: dyspepsia) Qty: 40 2RF Rx Instructions: flavored clotrimazole-betamethasone 1-0.05 % cream 1 applic topical BID PRN (Reason: itching) Qty: 45 2RF Rx Instructions: large area hands and feet MVW Complete Formul Multivit 1,500-800 unit-mcg capsule 1 cap PO .2 time day Qty: 60 5RF promethazine-DM 6.25-15 mg/5 mL syrup 5 ml PO Q6H PRN (Reason: cough) Qty: 240 2RF fluoxetine [Prozac] 20 mg capsule 40 mg PO DAILY Debrox 6.5 % drops 5 drp otic (ear) .at bedtime 5 Days Qty: 15 0RF acetaminophen 325 mg tablet 975 mg PO Q6H PRN (Reason: fever or pain) Qty: 90 0RF Farxiga 10 mg tablet 10 mg PO QAM Qty: 30 2RF acarbose 50 mg tablet 50 mg PO TID Qty: 90 2RF Rx Instructions: take before food chlorhexidine gluconate [Peridex] 0.12 % mouthwash 15 ml buccal BID Qty: 300 1RF desmopressin 0.1 mg tablet 0.1 mg PO .at bedtime Qty: 30 2RF desog-e.estradiol/e.estradiol [Azurette (28)] 0.15-0.02 mgx21 /0.01 mg x 5 tablet 1 tab PO DAILY Qty: 84 0RF oxybutynin chloride 15 mg tablet extended release 24hr 15 mg PO DAILY Qty: 30 2RF rosuvastatin 10 mg tablet 10 mg PO .at bedtime Qty: 30 2RF valsartan [Diovan] 80 mg tablet 80 mg PO DAILY Qty: 30 2RF metformin 500 mg tablet extended release 24 hr 1,000 mg PO BID Qty: 120 2RF fluticasone propionate 50 mcg/actuation spray,suspension 1 spray INTRANASAL BID PRN (Reason: allergy symptoms) Qty: 16 2RF (DME) blood-glucose meter [Contour Plus Blue Meter] Misc See Rx Instructions .ROUTE .MEDSUPPLY Qty: 1 0RF Rx Instructions: As directed (DME) Contour Plus Test Strip Strip See Rx Instructions .ROUTE .MEDSUPPLY Qty: 50 5RF Rx Instructions: use one daily (DME) lancets [Advocate Lancet] 30 gauge misc See Rx Instructions .Route Qty: 100 3RF Rx Instructions: use one daily lidocaine HCl [Aspercreme (lidocaine HCl)] 4 % liquid roll-on 1 ea topical .every 4 hours PRN Qty: 73 0RF Rx Instructions: apply to achy muscle or joint diphenhydramine HCl [Benadryl Allergy] 25 mg tablet 25 mg PO TID PRN (Reason: allergy symptoms) Qty: 30 0RF Discharge Orders: Discharge ED (Routine); Ordered 12/29/24 Ordered By: Fortino Keller Referrals: Ronald Nova, [facility] ADJUSTER-C [Primary Care Provider, Family Practice] Patient Instructions: Opioid Safety, Pain Management, Patient Portal & [facility] Instructions Activity Restrictions/Additional Instructions: Avoid activities that would cause repeat head injury. Come back if vomiting, confusion, concerning headache, new or worsening symptoms or concerns. Follow-up on your test results with your doctor. Print Language: Icelandic Coding Level of Care Code ED Family Member Caretaker for Artemio Eric
== END 2024-12-29 17:17 | disposition home or self-care (01) ==
PROVIDERS: Emergency Provider Emergency Medicine; PCP Nurse Practitioner
DX: S06.0X0A Concussion without loss of consciousness, initial encounter (principal); Z79.84 Long term (current) use of oral hypoglycemic drugs; E11.9 Type 2 diabetes mellitus without complications; W22.8XXA Striking against or struck by other objects, initial encounter
CPT/HCPCS: 70450; 99284; J9999

== ENCOUNTER 2025-01-03 09:47 | Emergency (ER) | payer MEDICAID, SELFPAY ==
[2025-01-03 09:48] VITALS: BP 117/88; PULSE 74; RESP 17; TEMP 36.7; O2SAT 95; BMI 32.1
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
--- OUTSIDE RECORDS SUMMARY | 2025-01-03 09:59 | XMS_ITS | Clinical Summary ---
Author Organization [facility] Facility Address [address] [place] [id number] Care Team Providers Care Barber Instructor Name Role Phone Ronald Nova Primary Care [...] Description 10/08/2024 10:00 AM CDT Office Visit [facility], [address] [phone] Mariela Salgado NP Other proteinuria (Primary Dx) 10/08/2024 Documentation Only [facility], [address] [phone] Elisa Philip 10/08/2024 Results Follow-Up [facility], [facility] [address] [place] [phone] Caryn Bai MA 10/08/2024 Documentation Only [facility], [facility] [address] [place] [phone] Caryn Bai MA 10/08/2024 Documentation Only [facility], [facility] [address] [place] [phone] Caryn Bai MA from Last 3 Months Social History [...] Exam 01/26/2021 Diabetes: Hemoglobin A1C 05/03/2022 02/01/2022, 10/13 Influenza Vaccine (#1) 2025 3, 06/15/2021, 04/07/2014 [...] (NON-INTERFACED LABS) - 10/08/2024 3:05 PM CDT [facility] Clinical Laboratory [address] [place] [address] Dr. Edmund Arnold, [place] Mariela Salgado NP LAB BLOOD ORDERABLES Lucille blevins Result PRINT/EXTERNAL (NON-INTERFACED LABS) * (ABNORMAL) Hemoglobin [...] Agency Comment Performing Organization Information: Site ID: [id number] Name: [facility] Address: [address] [id number] Director: Nehemias Villatoro D.O., MPH Yanique Thomas DO LAB BLOOD ORDERABLES F inal Result [facility] from Last 3 Months or Most Recently Relevant to Health Maintenance Insurance Medicaid [place] ([id number]) Care Teams Barber Instructor Relationship Specialty Start Date End Date Ronald Nova ARNP [address] [place] [phone] PCP - General Nurse Practitioner 05/11/22
--- OUTSIDE RECORDS SUMMARY | 2025-01-03 09:59 | XMS_ITS | Patient Health Record ---
Author Organization [facility] Address [address] [place] [address] Care Team Providers Care Clinical Rn Liaison Name Role Phone Frandy Monge Primary Care [...] W/U Status Risk Notes Problem Acute pharyngitis (130097728) Acute pharyngitis, unspecified (J02.9) Active confirmed Problem Acute upper respiratory infection, unspecified (J06.9) Active confirmed Problem Cellulitis of left toe (8892982347) Cellulitis of left toe (L03.032) Active confirmed Plan Of Treatment No Information Insurance Providers Payer Name Payer Address Payer Phone Subscriber Number Group Number Insured Name Patient Relationship to Insured Coverage Start Date Coverage End Date Medicaid Dental [address] [place] [address] [id number] FAVIO RENDON [place] Self - patient is the insured Medical (General) History Medical History History ICD Code Diabetes II Mental disabilities Sinus trouble Surgical History Surgery Date(Month/Year) feeding tube surgery
[2025-01-03 10:47] VITALS: BP 126/104; PULSE 75; O2SAT 99
== END 2025-01-03 10:48 | disposition home or self-care (01) ==
PROVIDERS: Emergency Provider Physician Assistant; PCP Nurse Practitioner
DX: R10.9 Unspecified abdominal pain (principal); V89.2XXA Person injured in unspecified motor-vehicle accident, traffic, initial encounter; E11.9 Type 2 diabetes mellitus without complications
CPT/HCPCS: 99282

== ENCOUNTER → 2025-01-14 15:59 | Outpatient (BNVA) | payer MEDICAID, SELFPAY | PROVIDERS: PCP Nurse Practitioner; Visit Provider Nurse Practitioner | DX: E11.9 Type 2 diabetes mellitus without complications (principal); E11.65 Type 2 diabetes mellitus with hyperglycemia | CPT/HCPCS: 80053; 80061; 81000; 82607; 83036 ==

== ENCOUNTER → 2025-05-01 07:52 | Outpatient (BNVA) | payer MEDICAID, SELFPAY | PROVIDERS: PCP Nurse Practitioner; Visit Provider Nurse Practitioner | DX: E11.65 Type 2 diabetes mellitus with hyperglycemia (principal) | CPT/HCPCS: 80053; 81000; 83036 ==